=== PATIENT | female | born 1945 | race Caucasian/White ===

== ENCOUNTER 2016-11-17 16:49 | Inpatient (IN) | payer OTHER ==
--- NOTE | 2016-11-17 18:05 | PDOC ---
History of Present Illness - History of Present Illness Initial Comments: 11/17/16 18:07 The patient is a 70 year old female, with a significant past medical history of CVA (November 2015), CAD, hypertension, who presents to the emergency department with 3 weeks of progressive lower extremity weakness with new onset of fecal and urinary incontinence and frequent falls for the past 2 weeks. The patient's family states her feet were swollen a week ago, but has now resolved. The patient states she has been unsteady on her feet and reports falling onto a hard ground recently, resulting in a small bruise on the right side of her back. She states her incontinence has been because she is unaware of when she is moving her bowels or passing urine. She also states she feels she can not walk to the bathroom. She denies chest pain, shortness of breath, headache and dizziness. She denies fever, chills, nausea, vomit, diarrhea and constipation. She denies dysuria, frequency, urgency and hematuria. Allergies: Penicillin Social history: denies toxic habits PCP - Dr. Grazyna Macias <Angi Tomlinson - Last Filed: 11/17/16 18:30> <Merary Obregon - Last Filed: 11/17/16 18:40> - General Chief Complaint: Weakness Stated Complaint: WEAKNESS Time Seen by Provider: 11/17/16 17:58 Past History <Angi Tomlinson - Last Filed: 11/17/16 18:30> - Past Medical History Cardiac Disorders: Yes (2010) CVA: Yes Diabetes: Yes HTN: Yes - Surgical History Cardiac Surgery: Yes (Stents 2010) - Psycho/Social/Smoking Cessation Hx Anxiety: No Suicidal Ideation: No Smoking Status: No Smoking History: Former smoker Have you smoked in the past 12 months: No Number of Cigarettes Smoked Daily: 20 If you are a former smoker, when did you quit?: 2 YRS Information on smoking cessation initiated: No 'Breaking Loose' booklet given: 11/27/15 Hx Alcohol Use: No Drug/Substance Use Hx: No Substance Use Type: None Hx Substance Use Treatment: No <Merary Obregon - Last Filed: 11/17/16 18:40> - Past Medical History Allergies/Adverse Reactions: Allergies Allergy/AdvReac Type Severity Reaction Status Date / Time Penicillins Allergy Unknown Verified 11/17/16 16:56 Home Medications: Ambulatory Orders Ascorbic Acid [Vitamin C -] 500 mg PO DAILY #0 tablet 12/02/15 Atorvastatin Ca [Lipitor] 10 mg PO HS #0 tablet 12/02/15 Carvedilol [Coreg -] 25 mg PO BID #0 tablet 12/02/15 Clopidogrel Bisulfate [Plavix -] 75 mg PO DAILY #0 tablet 12/02/15 Heparin - 5,000 unit SQ BID #0 vial 12/02/15 Insulin Sliding Scale [Novolog Vial Sliding Scale -] 1 vial SQ ACHS #0 units 01/09 Losartan Potassium [Cozaar -] 50 mg PO DAILY #0 tablet 12/02/15 Metformin HCl [Glucophage -] 1,000 mg PO BIDAC #0 tablet 12/02/15 Nicotine Patch [Nicoderm Patch -] 14 mg TD DAILY #0 patch 12/02/15 Review of Systems - Review of Systems Able to Perform ROS?: Yes Comments:: 11/17/16 18:12 GENERAL/CONSTITUTIONAL: No fever or chills. No weakness. HEAD, EYES, EARS, NOSE AND THROAT: No change in vision. No ear pain or discharge. No sore throat. CARDIOVASCULAR: No chest pain or shortness of breath. RESPIRATORY: No cough, wheezing, or hemoptysis. GASTROINTESTINAL: (+) fecal incontinence. No nausea, vomiting, diarrhea or constipation. GENITOURINARY: (+) urine incontinence. No dysuria MUSCULOSKELETAL: (+) back pain. No joint or muscle swelling or pain. No neck SKIN: No rash NEUROLOGIC: (+) unsteady gait, frequent falls, decreased strength/sensation in the LLE. No headache, vertigo, loss of consciousness, ENDOCRINE: No increased thirst. No abnormal weight change. HEMATOLOGIC/LYMPHATIC: No anemia, easy bleeding, or history of blood clots. ALLERGIC/IMMUNOLOGIC: No hives or skin allergy. <Angi Tomlinson - Last Filed: 11/17/16 18:30> *Physical Exam - Vital Signs Last Vital Signs Temp Pulse Resp BP Pulse Ox 98.2 F 66 20 164/82 99 11/17/16 16:51 11/17/16 16:51 11/17/16 16:51 11/17/16 16:51 11/17/16 16:51 - Physical Exam Comments: 11/17/16 18:14 GENERAL: Awake, alert, and fully oriented, in no acute distress HEAD: No signs of trauma EYES: PERRLA, EOMI, sclera anicteric, conjunctiva clear ENT: Auricles normal inspection, hearing grossly normal, nares patent, oropharynx clear without exudates. Moist mucosa NECK: Normal ROM, supple, no lymphadenopathy, JVD, or masses LUNGS: Breath sounds equal, clear to auscultation bilaterally. No wheezes, and no crackles HEART: Regular rate and rhythm, normal S1 and S2, no murmurs, rubs or gallops ABDOMEN: Soft, nontender, normoactive bowel sounds. No guarding, no rebound. No masses EXTREMITIES: Normal range of motion, no edema. No clubbing or cyanosis. No cords, erythema, or tenderness NEUROLOGICAL: (+) no midline spinal tenderness.. Decreased sensation to light touch on the LLE. Normal speech, SKIN: Warm, Dry, normal turgor, no rashes or lesions noted. <Angi Tomlinson - Last Filed: 11/17/16 18:30> - Vital Signs Last Vital Signs Temp Pulse Resp BP Pulse Ox 98.2 F 66 20 164/82 99 11/17/16 16:51 11/17/16 16:51 11/17/16 16:51 11/17/16 16:51 11/17/16 16:51 <Merary Obregon - Last Filed: 11/17/16 18:40> Medical Decision Making - Medical Decision Making 11/17/16 18:00 70 yo F with h/o prior CVA, HTN DM living at home with family, here with 3 weeks of progressive weakness, frequent falls, and recently bowel and bladder incontinence. states has been issues with balance. in addition has had chronic neck and low back pain. no f/c states has not idea when she is about to urinate or defecate. pt has chronically left sided weakness from old cva, worse recently. folows with dr. nunez. on physical exam, NAD lungs cTAB heart RR Rno m/r/g. abd soft. nuero awake alert 5/5 upper ext strenth, lower ext 4/5 llext, right 5/5. sensation decreased left leg. no mildline spinal tenderness. differential: cva, spinal stenosis, ich from falls, infection. plan cbc lytes ua ekg ct head, cervical spine, likely admission for MRI. <Merary Obregon - Last Filed: 11/17/16 18:40> *DC/Admit/Observation/Transfer - Attestations Scribe Attestion: 11/17/16 18:31 Documentation prepared by Angi Tomlinson, acting as medical coding specialist for Merary Obregon MD <Angi Tomlinson - Last Filed: 11/17/16 18:30> - Discharge Dispostion Admit: Yes <Merary Obregon - Last Filed: 11/17/16 18:40> Diagnosis at time of Disposition: Weakness of both lower extremities - Referrals Referrals: Grazyna Macias MD [Primary Care Provider] -
[2016-11-17 18:57] LABS: MEAN CELL VOLUME 79.1 fl (80-96); MEAN PLT VOLUME 7.9 fl (7.5-11.1); PLATELET COUNT 302 K/MM3 (134-434); WHITE BLOOD COUNT 8.2 K/mm3 (4.0-10.0)
[2016-11-17 18:59] LABS: BASOPHIL 0.6 % (0-2.0); EOSINOPHIL 1.3 % (0-4.5); MCH 25.7 pg (25.7-33.7); MCHC 32.5 g/dl (32.0-36.0); NEUTROPHILS 65.8 % (42.8-82.8); RDW 14.8 % (11.6-15.6)
[2016-11-17 22:20] LABS: ALBUMIN 3.6 g/dl (3.4-5.0); ANION GAP 8 (8-16); BILIRUBIN,TOTAL 0.4 mg/dL (0.2-1.0); CALCIUM 9.2 mg/dL (8.5-10.1); CO2 28 mmol/L (21-32); COCKROFT - GAULT 51.3145; CREATININE 0.9 mg/dL (0.55-1.02); GLUCOSE,RANDOM 93 mg/dL (74-106); SGOT/AST 18 U/L (15-37); SGPT/ALT 19 U/L (12-78); TOT PROT 6.7 g/dl (6.4-8.2)
[2016-11-17 22:22] LABS: ALK PHOS 67 U/L (45-117); TROPONIN I 0.03 ng/ml (0.00-0.05)
[2016-11-18 01:17] VITALS: BMI 27.3
[2016-11-18] MEDS ORDERED: ACETAMINOPHEN 325 MG TABLET (FP) PO PRN (01:34)
[2016-11-18] MEDS: metFORMIN HCL 500 MG TABLET (FP) PO SCH ×2 (06:50→17:29)
--- NOTE | 2016-11-18 09:39 | HP ---
DATE OF ADMISSION: 11/17/2016 HISTORY: This is a 70-year-old female known to me for many years. Came to the emergency room, brought by her children saying that she is losing her control of bowel movements while at home. She had a stroke about 8 years ago. Since then, wheelchair-bound. At home, she is on multiple medications for diabetes. Also on Plavix, losartan, carvedilol. PHYSICAL EXAMINATION General: This morning, patient is awake, alert, oriented. She knows where she is. She knows me. Vital signs: B/P 180/70, pulse 63, respirations 20, temperature 98. HEENT: Unremarkable, neck supple, no JVD. Lungs: Clear. Heart: S1, S2, normal. No S3, S4. Abdomen: Soft. Neurological examination: Minimal weakness elicited on the right lower extremity. IMPRESSION: 1. Generalized weakness and fall. 2. Incontinence of bowel movements. 3. Cerebrovascular accident . 4. Diabetes. 5. Hypertension. PLAN: 1. Neuro consult. Dr. Newton. 2. Will evaluate chest x-ray, EKG and labs. 3. Patient may need fdc facility placement. DEWEY CROCKETT M.D. [id number]
[2016-11-18] MEDS: CARVEDILOL 25 MG TABLET (FP) PO SCH (10:33)
[2016-11-18] MEDS: CLOPIDOGREL BISULFATE 75 MG TABLET (FP) PO SCH (10:33)
[2016-11-18] MEDS: LOSARTAN POTASSIUM 50 MG TABLET (FP) PO SCH (10:33)
--- NOTE | 2016-11-18 13:07 | EKG ---
Test Reason : Blood Pressure : / mmHG Vent. Rate : 060 BPM Atrial Rate : 060 BPM P-R Int : 164 ms QRS Dur : 086 ms QT Int : 382 ms P-R-T Axes : 060 -46 093 degrees QTc Int : 382 ms NORMAL SINUS RHYTHM LEFT AXIS DEVIATION LEFT VENTRICULAR HYPERTROPHY WITH REPOLARIZATION ABNORMALITY CANNOT RULE OUT SEPTAL INFARCT (CITED ON OR BEFORE 09-JUL-2010) INFERIOR INFARCT , AGE UNDETERMINED ABNORMAL ECG WHEN COMPARED WITH ECG OF 27-NOV-2015 14:17, PREMATURE VENTRICULAR COMPLEXES ARE NO LONGER PRESENT INFERIOR INFARCT IS NOW PRESENT NONSPECIFIC T WAVE ABNORMALITY, WORSE IN INFERIOR LEADS INVERTED T WAVES HAVE REPLACED NONSPECIFIC T WAVE ABNORMALITY IN ANTERIOR LEADS Confirmed by JACQUELYN FOREMAN MD ([id number]) on 11/18/2016 1:07:00 PM Referred By: Confirmed By:JACQUELYN FOREMAN MD
[2016-11-18] MEDS: ATORVASTATIN CA 10 MG TABLET (FP) PO SCH (22:22)
--- NOTE | 2016-11-18 22:45 | CONSULT ---
Consult - text type - Consultation Consultation Note: NEUROLOGY CONSULTATION is greatly appreciated: This 70 yo RH woman lives with two sons. PMH asig for HTN, DM, Chol, ASHD, S/P CVA with left sided weakness. Chronic neck and low back pain. Denies ETOH. On Insulin, clopidogrel, atorvastatin, carvedilol, losartan, metformin and nicoderm. Now admitted after 3 weeks of progressive cognitive decline culminating in bowel and bladder dysfunction and multiple falls. CT of head (reviewed): Moderate, diffuse atrophy with ex-vacuo hydrocephalus and diffuse microvascular changes. CT of Cervical spine: Moderate DJD without canal stenosis or cord compression. XRays of LS spine: Moderately advanced DJD without fracture or dislocation. JAZZ: Neck supple. No bruits. NEURO: Slow to respond. Cannot give [facility], May or Trump. She know it is 2017. + Glabella. Snout Sparse fluent speech CN II-XII: Normal Motor: No drift or tremor. Normal strength. Symmetrical grasps. Brisk reflexes. Toes downgoing. Coord: No obvious dystaxia Sensory: Briskly withdraws all 4's to pinch. Gait: Not tested. IMP: Moderately severe, B/L cerebral dysfunction (OMS, Chronic) probably representing underlying Alzheimer's Disease. Etiology of subacute deterioration is not immediately apparent but suspect Toxic-metabolic factors are responsible. SUGGEST: Check B12, B1, TSH, T4, RPR, Mg++, Ammonia, CK, UA, C&S. Give thiamine 250 mg IVPB in 100 cc NS q 8 hrs x 3 days. Mobilize OO Bed to chair for meals. Thank you very much, Geovani Newton MD
[2016-11-19] MEDS: metFORMIN HCL 500 MG TABLET (FP) PO SCH ×2 (06:21→16:10)
[2016-11-19 08:13] LABS: THYROXINE (T4) 8.3 ug/dl (4.8-13.9)
[2016-11-19 08:19] LABS: C-REACTIVE PROTEIN < 0.3 MG/DL (0.00-0.3)
[2016-11-19 08:20] LABS: THYROID STIMULATING HORMONE 4.66 uIU/ml (0.358-3.74)
[2016-11-19 08:32] LABS: URINE APPEARANCE CLOUDY; URINE BILIRUBIN NEGATIVE (NEGATIVE); URINE COLOR LTYELLOW; URINE GLUCOSE (UA) NEGATIVE (NEGATIVE); URINE KETONE NEGATIVE (NEGATIVE); URINE LEUK ESTERASE NEGATIVE (NEGATIVE); URINE NITRITE NEGATIVE (NEGATIVE); URINE PROTEIN NEGATIVE (NEGATIVE); URINE UROBILINOGEN NEGATIVE E.U./dl (0.2-1.0)
[2016-11-19 08:46] LABS: URINE BLOOD 2+ (NEGATIVE)
[2016-11-19 08:52] LABS: URIC ACID CRYSTALS RARE /hpf (NONE SEEN); URINE RBC 101 /hpf (0-3); URINE WBC 3 /hpf (3-5)
[2016-11-19 09:12] LABS: TROPONIN I 0.03 ng/ml (0.00-0.05)
--- NOTE | 2016-11-19 09:18 | PN ---
Progress Note, Physician Chief Complaint: Feels better History of Present Illness: Dr Newton,s neuro consult appreciated Started on IV thiamine - Current Medication List Current Medications: Active Medications Acetaminophen (Tylenol -) 650 mg PO Q6H PRN PRN Reason: PAIN Atorvastatin Calcium (Lipitor -) 10 mg PO HS [facility] Last Admin: 11/18/16 22:22 Dose: 10 mg Carvedilol (Coreg -) 25 mg PO DAILY [facility] Last Admin: 11/18/16 10:33 Dose: 25 mg Clopidogrel Bisulfate (Plavix -) 75 mg PO DAILY [facility] Last Admin: 11/18/16 10:33 Dose: 75 mg Losartan Potassium (Cozaar -) 50 mg PO DAILY [facility] Last Admin: 11/18/16 10:33 Dose: 50 mg Metformin HCl (Glucophage -) 1,000 mg PO BIDAC [facility] Last Admin: 11/19/16 06:21 Dose: 1,000 mg Thiamine HCl (Vitamin B1 Injection -) 200 mg IVPB DAILY [facility] - Objective Vital Signs: Vital Signs Temperature 97.1 F L 11/19/16 08:40 Pulse Rate 78 11/19/16 08:40 Respiratory Rate 20 11/19/16 08:40 Blood Pressure 173/86 11/19/16 08:40 O2 Sat by Pulse Oximetry (%) 95 11/18/16 21:00 Constitutional: Yes: No Distress Eyes: Yes: WNL HENT: Yes: WNL Neck: Yes: WNL Cardiovascular: Yes: WNL Respiratory: Yes: WNL Gastrointestinal: Yes: WNL ...Rectal Exam: Yes: Deferred Genitourinary: Yes: WNL Breast(s): Yes: WNL Musculoskeletal: Yes: Muscle Weakness Edema: No Neurological: Yes: Alert - ....Imaging X-ray: Report Reviewed
[2016-11-19] MEDS: THIAMINE HCL 200 MG/2 ML VIAL IVPB SCH (10:04)
[2016-11-19] MEDS: CARVEDILOL 25 MG TABLET (FP) PO SCH (10:04)
[2016-11-19] MEDS: CLOPIDOGREL BISULFATE 75 MG TABLET (FP) PO SCH (10:04)
[2016-11-19] MEDS: LOSARTAN POTASSIUM 50 MG TABLET (FP) PO SCH (10:05)
[2016-11-19] MEDS: ATORVASTATIN CA 10 MG TABLET (FP) PO SCH (21:43)
[2016-11-20] MEDS: metFORMIN HCL 500 MG TABLET (FP) PO SCH ×2 (06:16→16:47)
[2016-11-20] MEDS: THIAMINE HCL 200 MG/2 ML VIAL IVPB SCH (09:23)
[2016-11-20] MEDS: LOSARTAN POTASSIUM 50 MG TABLET (FP) PO SCH (09:23)
[2016-11-20] MEDS: CLOPIDOGREL BISULFATE 75 MG TABLET (FP) PO SCH (09:23)
[2016-11-20] MEDS: CARVEDILOL 25 MG TABLET (FP) PO SCH (09:23)
[2016-11-20] MEDS: ATORVASTATIN CA 10 MG TABLET (FP) PO SCH (23:30)
[2016-11-21] MEDS: metFORMIN HCL 500 MG TABLET (FP) PO SCH ×2 (06:26→17:22)
[2016-11-21] MEDS: LOSARTAN POTASSIUM 50 MG TABLET (FP) PO SCH (09:40)
[2016-11-21] MEDS: CLOPIDOGREL BISULFATE 75 MG TABLET (FP) PO SCH (09:40)
[2016-11-21] MEDS: CARVEDILOL 25 MG TABLET (FP) PO SCH (09:40)
[2016-11-21] MEDS ORDERED: THIAMINE HCL 200 MG/2 ML VIAL IM ONE (10:30)
--- NOTE | 2016-11-21 14:21 | PN ---
Progress Note, Physician Chief Complaint: Feels better History of Present Illness: Awaiting SNF - Current Medication List Current Medications: Active Medications Acetaminophen (Tylenol -) 650 mg PO Q6H PRN PRN Reason: PAIN Atorvastatin Calcium (Lipitor -) 10 mg PO HS [facility] Last Admin: 11/20/16 23:30 Dose: 10 mg Carvedilol (Coreg -) 25 mg PO DAILY [facility] Last Admin: 11/21/16 09:40 Dose: 25 mg Clopidogrel Bisulfate (Plavix -) 75 mg PO DAILY [facility] Last Admin: 11/21/16 09:40 Dose: 75 mg Losartan Potassium (Cozaar -) 50 mg PO DAILY [facility] Last Admin: 11/21/16 09:40 Dose: 50 mg Metformin HCl (Glucophage -) 1,000 mg PO BIDAC [facility] Last Admin: 11/21/16 06:26 Dose: 1,000 mg Thiamine HCl (Vitamin B1 Injection -) 200 mg IVPB DAILY [facility] Last Admin: 11/20/16 09:23 Dose: 200 mg - Objective Vital Signs: Vital Signs Temperature 98.6 F 11/21/16 10:00 Pulse Rate 68 11/21/16 10:00 Respiratory Rate 18 11/21/16 10:00 Blood Pressure 174/68 11/21/16 10:00 O2 Sat by Pulse Oximetry (%) 96 11/19/16 21:00 Constitutional: Yes: No Distress Eyes: Yes: WNL HENT: Yes: WNL Neck: Yes: WNL Respiratory: Yes: WNL Gastrointestinal: Yes: WNL ...Rectal Exam: Yes: Deferred Genitourinary: Yes: WNL Musculoskeletal: Yes: Muscle Weakness Edema: No Integumentary: Yes: WNL Neurological: Yes: Alert Assessment/Plan Continue same trt
[2016-11-21] MEDS: ATORVASTATIN CA 10 MG TABLET (FP) PO SCH (23:03)
[2016-11-22] MEDS: metFORMIN HCL 500 MG TABLET (FP) PO SCH ×2 (06:13→16:45)
[2016-11-22] MEDS: THIAMINE HCL 200 MG/2 ML VIAL IVPB SCH ×2 (07:48→09:52)
[2016-11-22] MEDS: LOSARTAN POTASSIUM 50 MG TABLET (FP) PO SCH (09:51)
[2016-11-22] MEDS: CARVEDILOL 25 MG TABLET (FP) PO SCH (09:51)
[2016-11-22] MEDS: CLOPIDOGREL BISULFATE 75 MG TABLET (FP) PO SCH (09:51)
--- NOTE | 2016-11-22 12:11 | PN ---
Progress Note, Physician Chief Complaint: No new complaints History of Present Illness: Diabetic ,S/P CVA admitted with crebral dysfunction - Current Medication List Current Medications: Active Medications Acetaminophen (Tylenol -) 650 mg PO Q6H PRN PRN Reason: PAIN Atorvastatin Calcium (Lipitor -) 10 mg PO HS [facility] Last Admin: 11/21/16 23:03 Dose: 10 mg Carvedilol (Coreg -) 25 mg PO DAILY [facility] Last Admin: 11/22/16 09:51 Dose: 25 mg Clopidogrel Bisulfate (Plavix -) 75 mg PO DAILY [facility] Last Admin: 11/22/16 09:51 Dose: 75 mg Losartan Potassium (Cozaar -) 50 mg PO DAILY [facility] Last Admin: 11/22/16 09:51 Dose: 50 mg Metformin HCl (Glucophage -) 1,000 mg PO BIDAC [facility] Last Admin: 11/22/16 06:13 Dose: 1,000 mg Thiamine HCl (Vitamin B1 Injection -) 200 mg IVPB DAILY [facility] Last Admin: 11/22/16 09:52 Dose: 200 mg - Objective Vital Signs: Vital Signs Temperature 98.9 F 11/22/16 09:29 Pulse Rate 74 11/22/16 09:29 Respiratory Rate 16 11/22/16 09:29 Blood Pressure 157/76 11/22/16 09:29 O2 Sat by Pulse Oximetry (%) 96 11/19/16 21:00 Constitutional: Yes: No Distress Eyes: Yes: WNL HENT: Yes: WNL Neck: Yes: WNL Cardiovascular: Yes: WNL Respiratory: Yes: WNL Gastrointestinal: Yes: Normal Bowel Sounds ...Rectal Exam: Yes: Deferred Genitourinary: Yes: WNL Breast(s): Yes: WNL Musculoskeletal: Yes: Muscle Weakness Peripheral Pulses WNL: Yes Neurological: Yes: Alert Assessment/Plan Continue same trt
[2016-11-22] MEDS: ATORVASTATIN CA 10 MG TABLET (FP) PO SCH (21:18)
[2016-11-23] MEDS: metFORMIN HCL 500 MG TABLET (FP) PO SCH ×2 (06:15→17:30)
--- NOTE | 2016-11-23 09:13 | PN ---
Progress Note, Physician Chief Complaint: No complaints History of Present Illness: Awaiting SNF placement - Current Medication List Current Medications: Active Medications Acetaminophen (Tylenol -) 650 mg PO Q6H PRN PRN Reason: PAIN Atorvastatin Calcium (Lipitor -) 10 mg PO HS [facility] Last Admin: 11/22/16 21:18 Dose: 10 mg Carvedilol (Coreg -) 25 mg PO DAILY [facility] Last Admin: 11/22/16 09:51 Dose: 25 mg Clopidogrel Bisulfate (Plavix -) 75 mg PO DAILY [facility] Last Admin: 11/22/16 09:51 Dose: 75 mg Losartan Potassium (Cozaar -) 50 mg PO DAILY [facility] Last Admin: 11/22/16 09:51 Dose: 50 mg Metformin HCl (Glucophage -) 1,000 mg PO BIDAC [facility] Last Admin: 11/23/16 06:15 Dose: 1,000 mg Thiamine HCl (Vitamin B1 Injection -) 200 mg IVPB DAILY [facility] Last Admin: 11/22/16 09:52 Dose: 200 mg - Objective Vital Signs: Vital Signs Temperature 97.6 F 11/23/16 08:56 Pulse Rate 73 11/23/16 08:56 Respiratory Rate 20 11/23/16 08:56 Blood Pressure 150/79 11/23/16 08:56 O2 Sat by Pulse Oximetry (%) 98 11/22/16 21:00 Constitutional: Yes: No Distress Eyes: Yes: WNL HENT: Yes: WNL Neck: Yes: WNL Respiratory: Yes: WNL Gastrointestinal: Yes: WNL ...Rectal Exam: Yes: WNL Genitourinary: Yes: WNL Musculoskeletal: Yes: Muscle Weakness Edema: No Peripheral Pulses WNL: Yes Neurological: Yes: Other (Old CVA) Assessment/Plan Transfer to [facility]
--- NOTE | 2016-11-23 09:14 | PN ---
Progress Note, Physician - Current Medication List Current Medications: Active Medications Acetaminophen (Tylenol -) 650 mg PO Q6H PRN PRN Reason: PAIN Atorvastatin Calcium (Lipitor -) 10 mg PO HS [facility] Last Admin: 11/22/16 21:18 Dose: 10 mg Carvedilol (Coreg -) 25 mg PO DAILY [facility] Last Admin: 11/22/16 09:51 Dose: 25 mg Clopidogrel Bisulfate (Plavix -) 75 mg PO DAILY [facility] Last Admin: 11/22/16 09:51 Dose: 75 mg Losartan Potassium (Cozaar -) 50 mg PO DAILY [facility] Last Admin: 11/22/16 09:51 Dose: 50 mg Metformin HCl (Glucophage -) 1,000 mg PO BIDAC [facility] Last Admin: 11/23/16 06:15 Dose: 1,000 mg Thiamine HCl (Vitamin B1 Injection -) 200 mg IVPB DAILY [facility] Last Admin: 11/22/16 09:52 Dose: 200 mg - Objective Vital Signs: Vital Signs Temperature 97.6 F 11/23/16 08:56 Pulse Rate 73 11/23/16 08:56 Respiratory Rate 20 11/23/16 08:56 Blood Pressure 150/79 11/23/16 08:56 O2 Sat by Pulse Oximetry (%) 98 11/22/16 21:00
[2016-11-23] MEDS: CARVEDILOL 25 MG TABLET (FP) PO SCH (11:02)
[2016-11-23] MEDS: CLOPIDOGREL BISULFATE 75 MG TABLET (FP) PO SCH (11:02)
[2016-11-23] MEDS: LOSARTAN POTASSIUM 50 MG TABLET (FP) PO SCH (11:03)
[2016-11-23] MEDS: THIAMINE HCL 200 MG/2 ML VIAL IVPB SCH (11:03)
[2016-11-23 14:50] VITALS: BP 166/79; PULSE 70; TEMP 98.6
--- NOTE | 2016-11-23 16:45 | CONSULT ---
Consult - text type - Consultation Consultation Note: Podiatry Consultation: 70 year old F, history of CVA, admitted for B/L LE weakness for several weeks onset. Podiatry consultation requested for trimming of elongated, discolored toe nails x 10. Patient [facility] not [facility] to [facility] care for over 1 year. She denies F/V/N/C/SOB/CP. PMHx: HTN, CAD, NIDDM, h/o CVA, HLP Meds: noted in chart ALL: PCN YASSINE: Pedal pulses palpable, TG wnl, CFT brisk to all toes bilaterally. Nails are elongated, discolored, thickened, tender x 10. No nail bed wounds, no signs of infection. Imp: 70 year old NIDDM F with onychomycosis x 10 1. Manual debridement of mycotic nails x 10 with nail nipper. Patient tolerated the procedure well without complications. 2. DM foot hygiene discussed. 3. Upon discharge, will f/u in about 3-4 months for routine foot care. Thank you for the courtesy of this consultation. Carmelina Pickard DPM
== END 2016-11-23 19:33 | DRG 57 ==
LOC: JER 16:49 → JERBED 18:40 → J7W 11-18 00:14
PROVIDERS: ADMIT Internal Medicine; ATTEND Internal Medicine
PROC: 0HBRXZZ Excision of Toe Nail, External Approach (ICD-10-PCS; principal; 2016-11-23)
PROC: 0HBRXZZ Excision of Toe Nail, External Approach (ICD-10-PCS; 2016-11-23)
PROC: 0HBRXZZ Excision of Toe Nail, External Approach (ICD-10-PCS; 2016-11-23)
PROC: 0HBRXZZ Excision of Toe Nail, External Approach (ICD-10-PCS; 2016-11-23)
PROC: 0HBRXZZ Excision of Toe Nail, External Approach (ICD-10-PCS; 2016-11-23)
PROC: 0HBRXZZ Excision of Toe Nail, External Approach (ICD-10-PCS; 2016-11-23)
PROC: 0HBRXZZ Excision of Toe Nail, External Approach (ICD-10-PCS; 2016-11-23)
PROC: 0HBRXZZ Excision of Toe Nail, External Approach (ICD-10-PCS; 2016-11-23)
PROC: 0HBRXZZ Excision of Toe Nail, External Approach (ICD-10-PCS; 2016-11-23)
PROC: 0HBRXZZ Excision of Toe Nail, External Approach (ICD-10-PCS; 2016-11-23)
DX: G30.9 Alzheimer's disease, unspecified (principal); I69.354 Hemiplegia and hemiparesis following cerebral infarction affecting left non-dominant side; F02.80 Dementia in other diseases classified elsewhere, unspecified severity, without behavioral disturbance, psychotic disturbance, mood disturbance, and anxiety; R29.6 Repeated falls; R15.9 Full incontinence of feces; N39.42 Incontinence without sensory awareness; M47.9 Spondylosis, unspecified; E11.9 Type 2 diabetes mellitus without complications; I10 Essential (primary) hypertension; E78.00 Pure hypercholesterolemia, unspecified; I25.10 Atherosclerotic heart disease of native coronary artery without angina pectoris; Z95.5 Presence of coronary angioplasty implant and graft; R26.81 Unsteadiness on feet; M54.9 Dorsalgia, unspecified; B35.1 Tinea unguium
CPT/HCPCS: 36415; 70450-TC; 71010-TC; 72100-TC; 72125-TC; 80053; 81003; 81015; 82140; 82550; 82607; 83880; 84425; 84436; 84443; 84484; 85025; 85651; 86140; 86593; 87086; 93005; 93010; 97116-GP; 97162-GP; 99285-25

== ENCOUNTER 2017-05-11 15:51 | Emergency (ER) | payer OTHER ==
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
[2017-05-11 16:26] VITALS: BP 137/79; PULSE 90; TEMP 97.8; BMI 28.3
== END 2017-05-11 18:29 | disposition home or self-care (01) ==
LOC: JER 15:51
DX: S30.0XXA Contusion of lower back and pelvis, initial encounter (principal); Y04.2XXA Assault by strike against or bumped into by another person, initial encounter; Y93.89 Activity, other specified; Y92.128 Other place in nursing home as the place of occurrence of the external cause; I25.10 Atherosclerotic heart disease of native coronary artery without angina pectoris; E11.9 Type 2 diabetes mellitus without complications; I10 Essential (primary) hypertension; E78.5 Hyperlipidemia, unspecified; Z87.891 Personal history of nicotine dependence; Z95.5 Presence of coronary angioplasty implant and graft
CPT/HCPCS: 99281-25

== ENCOUNTER 2018-01-04 17:09 | Inpatient (IN) | payer OTHER ==
--- NOTE | 2018-01-04 17:31 | PDOC ---
History of Present Illness - General Stated Complaint: CHEST PAIN Time Seen by Provider: 01/04/18 17:31 History Source: Patient Exam Limitations: Dementia (Pt states she has "memory loss". She is not accompanied by any family and was brought by EMS. She is wearing a medical bracelet.) - History of Present Illness Initial Comments: Pt, with PMH of HTN, DM, prior PR, and dementia, presents with chest pain since yesterday. Pt states that she has "memory loss" and does not remember most events that occurred yesterday. She was brought to the ED by EMS from the [facility]. She states her chest pain is "all over her chest," radiates to her neck and back, and is pressure-like and squeezing in quality. She does not know of any exacerbating or alleviating factors, and does not know the last time she ate. She states she took all of her medication this morning, and had a regular bowel movement yesterday. She also states she normally has swelling in her legs, and sleeps on 2 pillows. She denies fevers/chills, syncope, light- headedness, diaphoresis, nausea or vomiting, abdominal pain, dysuria or changes in frequency to urination. 01/04/18 18:51 Past History - Past Medical History Allergies/Adverse Reactions: Allergies Allergy/AdvReac Type Severity Reaction Status Date / Time Penicillins Allergy Unknown Verified 01/04/18 17:47 Home Medications: Ambulatory Orders Acetaminophen W/ Codeine #3 [Tylenol # 3 -] 1 tab PO QID 01/04/18 Acetaminophen [Tylenol] 650 mg PO QID 01/04/18 Ascorbic Acid [Vitamin C] 500 mg PO DAILY 01/04/18 Baclofen 10 mg PO TID 01/04/18 Carvedilol [Coreg -] 25 mg PO BID 01/04/18 Clopidogrel Bisulfate [Clopidogrel] 75 mg PO DAILY 01/04/18 Glipizide 5 mg PO DAILY 01/04/18 Losartan Potassium 25 mg PO DAILY 01/04/18 Metformin HCl [Metformin HCl ER] 1,000 mg PO DAILY 01/04/18 Metformin HCl [Metformin HCl ER] 500 mg PO DAILY 01/04/18 Nitroglycerin [Nitrostat] 0.4 mg SL ASDIR 01/04/18 Rosuvastatin Calcium [Crestor] 20 mg PO DAILY 01/04/18 Thiamine Mononitrate [Vitamin B-1] 100 mg PO DAILY 01/04/18 hydrALAZINE HCL [Apresoline -] 10 mg PO TID 01/04/18 Anemia: No Asthma: No Cancer: No Cardiac Disorders: Yes (2010) CVA: Yes COPD: No CHF: No Dementia: No Diabetes: Yes GI Disorders: No Disorders: No HTN: Yes Hypercholesterolemia: Yes Liver Disease: No Seizures: No Thyroid Disease: No - Surgical History Abdominal Surgery: No Appendectomy: No Cardiac Surgery: Yes (Stents 2010) Cholecystectomy: No Lung Surgery: No Neurologic Surgery: No Orthopedic Surgery: No - Suicide/Smoking/Psychosocial Hx Smoking Status: No Smoking History: Never smoked Have you smoked in the past 12 months: No Number of Cigarettes Smoked Daily: 20 If you are a former smoker, when did you quit?: 2 YRS 'Breaking Loose' booklet given: 11/27/15 Hx Alcohol Use: No Drug/Substance Use Hx: No Substance Use Type: None Hx Substance Use Treatment: No Review of Systems - Review of Systems Able to Perform ROS?: Yes (Pt has dementia) Is the patient limited Armenian proficient: Yes Constitutional: Yes: Weight Stable. No: Chills, Diaphoresis, Fever, Night Sweats HEENTM: No: Blurred Vision, Recent change in vision, Double Vision, Difficulty Swallowing Respiratory: No: Cough, Orthopnea, Shortness of Breath, SOB with Exertion, Productive cough Cardiac (ROS): Yes: Chest Pain, Edema (LE edema.), Chest Tightness. No: Irregular Heart Rate, Lightheadedness, Palpitations, Syncope ABD/GI: No: Abdominal Distended, Abd. Pain w/ defecation, Blood Streaked Bowels , Constipated, Diarrhea, Nausea, Poor Appetite, Vomiting, Indigestion : Yes: Incontinence (Pt wears diaper). No: Burning, Dysuria, Frequency, Flank Pain, Hematuria, Pain, Urgency Musculoskeletal: No: Joint Pain, Muscle Pain Integumentary: No: Bruising, Rash, Sweating Neurological: No: Headache, Weakness Psychiatric: No: Change in Appetite Endocrine: No: Excessive Sweating, Increased Urine Hematologic/Lymphatic: No: Blood Clots All Other Systems: Reviewed and Negative *Physical Exam - Physical Exam General Appearance: Yes: Nourished, Appropriately Dressed, Mild Distress (Pt complaining of chest pain, but has normal work of breathing. Vitals stable.) HEENT: positive: EOMI, Normal ENT Inspection, Normal Voice, Symmetrical, Pharynx Normal Neck: positive: Trachea midline, Normal Thyroid, Supple. negative: Tender, Rigid Respiratory/Chest: positive: Lungs Clear, Normal Breath Sounds. negative: Chest Tender (No chest tenderness to palpation.), Respiratory Distress, Accessory Muscle Use, Crackles, Rales Cardiovascular: positive: Regular Rhythm, S1, S2, Edema (LE pitting edema to mid -tibia), Bradycardia (Rate in 50s). negative: JVD, Murmur Vascular Pulses: Dorsalis-Pedis (R): 3+, Doralis-Pedis (L): 3+ Gastrointestinal/Abdominal: positive: Normal Bowel Sounds, Tender (mild RUQ tenderness), Flat, Soft. negative: Organomegaly, Pulsatile Mass, Distended, Guarding, Rebound Musculoskeletal: positive: Normal Inspection. negative: CVA Tenderness Extremity: positive: Normal Capillary Refill, Normal Inspection, Normal Range of Motion, Pelvis Stable. negative: Tender Integumentary: positive: Normal Color, Dry, Warm Neurologic: positive: admissions recruiter II-XII NML intact, Fully Oriented, Alert, Normal Mood/ Affect, Normal Response, Motor Strength 5/5 Heart Score/ECG Review - ECG Intrepretation Rhythm: Regular Rhythm - [place]: Left [place] Deviation - P and [place] Delta Wave(s) Present: No WPW: No - QRS Poor R Wave Progression: No Q Wave Present: Yes Comment:: 01/04/18 19:21 Prior q waves in anterior leads, unchanged from prior ECG - ST and T Early Repolarization: No Non Specific ST-T Wave changes: No Flattened T Waves: No Prolonged Q-T Interval: No - ECG Impressions Normal ECG: Yes Non-specific ST Elevation: No Ischemic Changes: No (q waves present, but unchanged) Bradycardia: Yes (Unchanged from prior) Torsades cassi Pointes: No WPW: No Medical Decision Making - Medical Decision Making Pt seen within 15 minutes of bed arrival (entered later). Pt first complaining of generalized chest pain. Given history of ACS, EKG, troponin, CBC, CMP ordered. Lipase was ordered due to mild RUQ abdominal pain. EKG showed no new changes. R/o reflux vs pancreatitis vs cholecystitis. History is very limited given pts memory loss. Pt pain improved (now mild) after administration of aspirin and maalox. Pepcid IV also administered. Will reassess for pain to determine resolution. 01/04/18 18:48 Pt states pain is much improved. Will wait for labs and sign out to mid-shift resident for disposition. 01/04/18 19:11 Provided 4 mg IV zofran for nausea. No QT prolongation noted on ECG. 01/04/18 19:23 Pt stays at [facility] [phone]. 01/04/18 19:25 *DC/Admit/Observation/Transfer Diagnosis at time of Disposition: Chest pain Qualifiers: Chest pain type: unspecified Qualified Code(s): R07.9 - Chest pain, unspecified - Referrals Referrals: Grazyna Macias MD [Primary Care Provider] - - Patient Instructions - Post Discharge Activity
--- NOTE | 2018-01-04 17:39 | PDOC ---
Attending Attestation - HPI HPI: 01/04/18 20:27 The patient is a 72 year old female from retirement with a significant PMH of CA, CVA, DM, hypertension, and hyperlipidemia who presents to the emergency department with chest pain for 1 day. The patient reports that she is experiencing chest pain all over her chest. She also reports some stomach, neck and back pain. The patient reports that she usually sleeps at night with 2 pillows. She denies any recent trauma or injury. The patient denies any episode of coughing or vomiting. She denies any urinary symptoms. The patient denies any other symptoms. She denies any fever, chills, nausea,diarrhea and constipation. She denies any shortness of breath, headache and dizziness. The patient denies any other complaints. PCP: Dr. Villafuerte - Physicial Exam PE: 01/04/18 20:27 GENERAL: Awake, alert, and fully oriented, in no acute distress HEAD: No signs of trauma EYES: PERRLA, EOMI, sclera anicteric, conjunctiva clear ENT: Auricles normal inspection, hearing grossly normal, nares patent, oropharynx clear without exudates. Moist mucosa NECK: Normal ROM, supple, no lymphadenopathy, JVD, or masses LUNGS: Breath sounds equal, clear to auscultation bilaterally. No wheezes, and no crackles HEART: (+)bradycardic. Regular rhythm, normal S1 and S2, no murmurs, rubs or gallops ABDOMEN: (+)RLQ pain. Soft, nontender, normoactive bowel sounds. No guarding, no rebound. No masses EXTREMITIES: Normal range of motion, no edema. No clubbing or cyanosis. No cords, erythema, or tenderness NEUROLOGICAL: Cranial nerves II through XII grossly intact. Normal speech, normal gait SKIN: Warm, Dry, normal turgor, no rashes or lesions noted. Documentation prepared by Lynne Fernandez, acting as medical office technology instructor for Ann Soto MD. <Lynne Fernandez - Last Filed: 01/04/18 20:27> - Resident Resident Name: Alissa Phoenix - ED Attending Attestation I have performed the following: I have examined & evaluated the patient, The case was reviewed & discussed with the resident, I agree w/resident's findings & plan, Exceptions are as noted - Medical Decision Making 01/04/18 17:39 I, Dr. Ann Soto, DO, attest that this document has been prepared under my direction and personally reviewed by me in its entirety. I further attest, that it accurately reflects all work, treatment, procedures and medical decision -making performed by me. 01/04/18 18:11 72yo female with cp and epigastric abd pain -states pain is all over -pt is pleasantly demented -LE edema -will send labs, ekg, cxr -will medicate with asa and GI cocktail -will monitor and reassess 01/04/18 21:19 trop negative will keep in obs for further eval of cp 01/04/18 21:[address] Austin who accepts pt under Dr. Macias <Ann Soto - Last Filed: 01/04/18 21:25> Heart Score/ECG Review - ECG Intrepretation Comment:: 01/04/18 18:13 sinus annette at 56, q waves inferior leads and anterior leads, no acute st/t wave findings, unchanged from prior ekg 11/10 <Ann Soto - Last Filed: 01/04/18 21:25>
[2018-01-04] MEDS ORDERED: ASPIRIN 81 MG CHEWABLE TABLETS PO ONE (17:43)
[2018-01-04 18:00] VITALS: BMI 33.0
[2018-01-04] MEDS ORDERED: LIDOCAINE VISCOUS 2% ORAL/TOP 20 ML UNIT-DOSE CUP MM ONE (18:13)
[2018-01-04] MEDS ORDERED: FAMOTIDINE 20 MG/50 ML IVPB 20 MG/50 ML MG IVPB ONE ×2 (18:13→18:30)
[2018-01-04] MEDS ORDERED: MAG HYDROX/AL HYDROX/SIMETH 30 ML UNIT-DOSE CUP PO ONE (18:13)
[2018-01-04] MEDS ORDERED: ASPIRIN 81 MG CHEWABLE TABLETS ONE (18:30)
[2018-01-04] MEDS ORDERED: LIDOCAINE VISCOUS 2% ORAL/TOP 20 ML UNIT-DOSE CUP ONE (18:30)
[2018-01-04] MEDS ORDERED: MAG HYDROX/AL HYDROX/SIMETH 30 ML UNIT-DOSE CUP ONE (18:30)
[2018-01-04] MEDS ORDERED: ONDANSETRON 4 MG/2 ML VIAL IVPUSH ONE (19:16)
--- NOTE | 2018-01-04 19:45 | PDOC ---
*Physical Exam - Vital Signs Last Vital Signs Temp Pulse Resp BP Pulse Ox 99.9 F H 51 L 18 154/74 95 01/04/18 17:47 01/04/18 17:47 01/04/18 17:47 01/04/18 17:47 01/04/18 17:47 - Physical Exam Comments: General: No acute distress HEENT: EOMI, MMM Cards: RRR Pulm: Comfortable on room air Abd; Soft, nontender Neuro: Alert, responsive to questions, CN and motor/sensory grossly intact Psych: Agitated, upset ED Treatment Course - LABORATORY CBC & Chemistry Diagram: 01/04/18 20:12 01/04/18 17:43 - Medications Given in the ED: ED Medications Discontinued Medications Generic Name Dose Route Start Last Admin Trade Name Edy PRN Reason Stop Dose Admin Al Hydroxide/Mg Hydroxide 30 ml 01/04/18 18:13 01/04/18 18:39 Mylanta Oral Suspension - PO 01/04/18 18:14 30 ml ONCE ONE Administration Aspirin 324 mg 01/04/18 17:43 01/04/18 18:39 Asa - PO 01/04/18 17:44 324 mg ONCE ONE Administration Famotidine/Sodium Chloride 20 mg in 50 mls @ 100 mls/hr 01/04/18 18:13 18:39 Pepcid 20 Mg Premixed Ivpb - IVPB 01/04/18 18:42 100 mls/hr ONCE ONE Administration Lidocaine HCl 20 ml 01/04/18 18:13 01/04/18 18:39 Xylocaine 2% Viscous Oral - MM 01/04/18 18:14 20 ml ONCE ONE Administration Medical Decision Making - Medical Decision Making 01/04/18 19:[address] Phoenix. Patient is a 72yo woman with a h/o previous MD, dementia, diabetes who presented from a SNF complaining of generalized chest pain since yesterday. Initial workup included an EKG unchanged from previous. CBC, CMP, troponin and lipase were sent but are still pending. Ms Woodson's chest pain improved with maalox and famotidine. She additionally had an episode of small emesis that has resolved with zofran. Ms Woodson is slightly agitated currently about her length of stay and wishes to leave. The need to obtain lab results was discussed, and she states that she understands and is willing to wait. CBC, lytes unremarkable. Troponin at baseline 0.03. Ms Woodson continues to intermittently complain of epigastric pain. Plan to repeat troponin at 22:00. Will admit to telemetry observation for additional ACS workup. Seen and discussed with Dr Soto. *DC/Admit/Observation/Transfer Diagnosis at time of Disposition: Chest pain Qualifiers: Chest pain type: unspecified Qualified Code(s): R07.9 - Chest pain, unspecified - Discharge Dispostion Decision to Admit order: Yes - Referrals Referrals: Grazyna Macias MD [Primary Care Provider] - - Patient Instructions - Post Discharge Activity
[2018-01-04] MEDS ORDERED: ONDANSETRON 4 MG/2 ML VIAL ONE (20:31)
[2018-01-04 20:37] LABS: BASO % 0.4 % (0-2.0); EOS % 1.1 % (0-4.5); HEMATOCRIT 32.3 % (32.4-45.2); HEMOGLOBIN 10.4 GM/dL (10.7-15.3); LYMPH % 11.5 % (8-40); MCH 25.7 pg (25.7-33.7); MCHC 32.2 g/dl (32.0-36.0); MEAN CELL VOLUME 79.9 fl (80-96); MEAN PLT VOLUME 8.1 fl (7.5-11.1); MONO % 3.7 % (3.8-10.2); NEUT % 83.3 % (42.8-82.8); PLATELET COUNT 307 K/MM3 (134-434); RBC 4.05 M/mm3 (3.60-5.2); RDW 15.5 % (11.6-15.6); WHITE BLOOD COUNT 8.6 K/mm3 (4.0-10.0)
[2018-01-04 21:05] LABS: ALK PHOS 54 U/L (45-117); ANION GAP 10 (8-16); BILIRUBIN,TOTAL 0.4 mg/dL (0.2-1.0); BLOOD UREA NITROGEN 20 mg/dL (7-18); CALCIUM 9.1 mg/dL (8.5-10.1); CHLORIDE 103 mmol/L (98-107); CO2 27 mmol/L (21-32); CREATININE 0.9 mg/dL (0.55-1.02); GLUCOSE,RANDOM 186 mg/dL (74-106); POTASSIUM 4.8 mmol/L (3.5-5.1); SGOT/AST 21 U/L (15-37); SGPT/ALT 25 U/L (12-78); SODIUM 140 mmol/L (136-145); TOT PROT 7.2 g/dl (6.4-8.2)
[2018-01-04] MEDS ORDERED: ACETAMINOPHEN 1000 MG/100 ML VIAL (NON FORMULARY) IVPB ONE (21:19)
[2018-01-04] MEDS ORDERED: ACETAMINOPHEN INJECTION 100 ML IVPB ONE (21:42)
--- NOTE | 2018-01-05 10:10 | HP ---
DATE OF ADMISSION: 01/04/2018 HISTORY OF PRESENT ILLNESS: This is a 72-year-old female known to me for many years. At present, she is a resident at [facility]. She came here, was brought to the ER yesterday by the ambulance from the skilled nursing because of chest pain. She was complaining of chest pain yesterday. Nitroglycerin x3 given, no relief. So, they phoned the ambulance. This morning, patient is saying no chest pain. Her troponin did twice negative, but her B peptide is high, 16,918. Her lipase also high, 395. PHYSICAL EXAMINATION: General: Today, awake, alert, oriented. Now, pain no distress. Vital signs: Her blood pressure is 120/80, pulse 70, respirations 20, temperature 98. HEENT: Unremarkable. Neck: supple. No JVD. Lungs: Clear. Heart: S1, S2 normal. No S3, S4. Abdomen: Soft, nontender. Extremities: No edema. Neurologic: Positive findings. DIAGNOSTIC DATA: Chest x-ray negative. Cardiomegaly present. LABORATORY REPORTS: WBC 8.6, hemoglobin 10.4, neutrophils 83. Chemistry: Electrolytes are normal, BUN 20, creatinine 0.9, blood sugar 186, and B peptide 16,918, lipase 395. IMPRESSION: Chest pain, rule out myocardial infarction, diabetes, hypertension, possible pancreatitis. PLAN: As ordered. Mónica [id number]
--- NOTE | 2018-01-05 12:04 | EKG ---
Test Reason : Blood Pressure : / mmHG Vent. Rate : 056 BPM Atrial Rate : 056 BPM P-R Int : 144 ms QRS Dur : 104 ms QT Int : 416 ms P-R-T Axes : 049 -14 078 degrees QTc Int : 401 ms POOR DATA QUALITY, INTERPRETATION MAY BE ADVERSELY AFFECTED SINUS BRADYCARDIA INFERIOR INFARCT (CITED ON OR BEFORE 09-JUL-2010) T WAVE ABNORMALITY, CONSIDER LATERAL ISCHEMIA ABNORMAL ECG WHEN COMPARED WITH ECG OF 17-NOV-2016 18:56, QRS DURATION HAS INCREASED MINIMAL CRITERIA FOR SEPTAL INFARCT ARE NO LONGER PRESENT NONSPECIFIC T WAVE ABNORMALITY NO LONGER EVIDENT IN INFERIOR LEADS T WAVE INVERSION LESS EVIDENT IN LATERAL LEADS Confirmed by JACQUELYN FOREMAN MD ([id number]) on 01/05/2018 12:04:13 PM Referred By: Confirmed By:JACQUELYN FOREMAN MD
[2018-01-05] MEDS ORDERED: NITROGLYCERIN SUBLINGUAL 1/150 0.4 MG TAB SL PRN (18:53)
[2018-01-05] MEDS ORDERED: FUROSEMIDE 40 MG/4 ML INJECTABLE VIAL IVPUSH ONE (19:00)
[2018-01-05] MEDS: DEXTROSE 5%-0.45% SALINE 1,000 ML IV SCH (20:31)
[2018-01-05 20:48] LABS: AMYLASE 961 U/L (25-115); LIPASE 2178 U/L (73-393)
--- NOTE | 2018-01-05 21:31 | CONS ---
DATE OF CONSULTATION: 01/05/2018 REQUESTING PROVIDER: Dr. Macias CHIEF COMPLAINT: Chest pain. HISTORY OF PRESENT ILLNESS: The patient is a 72-year-old female who resides at the [facility] and has a history of hypertension, hypertensive cardiovascular disease, diabetes mellitus, history of cerebrovascular accident with dementia, history of repeated falls, coronary artery disease, status post myocardial infarction, was admitted with anterior pressure-like chest pain that would last 10-15 minutes and would radiate to the back. She had repeated episodes of pain and was brought to the emergency room. She denies having dyspnea, diaphoresis. No history of lightheadedness or dizziness. No history of presyncope or syncope reported. She does give history of progressive pedal edema. There is no history of paroxysmal nocturnal dyspnea or orthopnea. No history of exertional dyspnea. PAST HISTORY: As mentioned in the history of present illness. History of memory loss following cerebrovascular accident. SURGICAL HISTORY: Tonsillectomy. SOCIAL HISTORY: She is a , has 2 sons who are healthy. She started smoking at the age of 14 and stopped 4 years ago. She used to smoke one pack of cigarettes per day. Drank several cups of coffee per day. There is no history of alcohol use. FAMILY HISTORY: Father at the age of 53 of a myocardial infarction. Mother at age 103 of natural causes. She had 3 sisters. One of them at age 64 of unknown cause. The other sisters are basically healthy. ALLERGIES: PENICILLIN. MEDICATIONS: List from [facility] reveals that the patient was on the following medications: 1. Metformin 1500 mg p.o. daily. 2. Coreg 25 mg p.o. q.12 h. 3. Alprazolam 10 mg p.o. t.i.d. 4. Losartan 25 mg 3 tablets p.o. daily. 5. Baclofen 10 mg half-tablet p.o. t.i.d. 6. Plavix 75 mg p.o. daily. 7. Acetaminophen 325 mg q.6 h p.r.n. 8. Crestor 20 mg p.o. daily. 9. Nitrostat 0.4 mg sublingually p.r.n. for chest discomfort. 10. Vitamin B 100 mg p.o. daily. 11. Vitamin C 500 mg p.o. daily. 12. Artificial Tears 1 drop in each eye q.i.d. 13. Bengay 1 application b.i.d. to the [facility]. While in the hospital, the patient had received: 1. Zofran 4 mg IV. 2. Acetaminophen 1000 mg IV piggy back. 3. Mylanta 30 mL. 4. Famotidine 20 mg IV. REVIEW OF SYSTEMS: Constitutional: No history of chills, fever, or night sweats reported. No history of unintentional weight loss. HEENT: No history of headaches, diplopia, blurred vision reported. No history of epistaxis, hoarseness, tinnitus, or deafness. Cardiovascular: See history of present illness. Respiratory: Denies having dyspnea, PND, or orthopnea. No history of cough. No history of hemoptysis. Gastrointestinal: She denies having nausea, vomiting, melena, or hematemesis. Denies having abdominal pain or discomfort. No history of change in bowel habits reported. Genitourinary: No history of dysuria, frequency, or hematuria. Endocrine: See history of present illness. Neurologic: History of 2 cerebrovascular accidents with left hemiparesis. Patient states that she has had gait disturbance and used to have multiple falls. No history of seizures. Patient volunteered the information that she has memory loss, which is at times significant. Hematologic: No history of anemia, bleeding, or ecchymosis reported. PHYSICAL EXAMINATION: General: A 72-year-old female who was in no acute distress. No pallor, cyanosis, clubbing, or jaundice. Vital Signs: Weight on admission was 175 pounds. Blood pressure was 108/65 mmHg, 60 beats per minute and regular, respirations 18 per minute, oxygen saturation 93% on 3 L of oxygen. Neck: Supple. No jugular venous distention. Slightly positive hepatojugular reflux. Carotids were 1-2+. Upstrokes grossly appear to be normal. Unable to appreciate bruits or thyromegaly. Heart: PMI within the 5th intercostal space, no heaves or thrills. S1 and S2 were normal. Ejection systolic murmur grade 2/6 was heard at the 2nd right intercostal space and along the left sternal border ending in early to mid-systole. No diastolic murmur or gallops were heard. Lungs: Clear on auscultation. Abdomen: Soft, protuberant and nontender. No hepatosplenomegaly or palpable masses were appreciated. Bowel sounds were present. Extremities: 2-3+ left lower extremity edema extending to the ankles and foot. 2+ right lower extremity edema. There were bilateral varicosities. Dorsalis pedis and posterior tibial pulses could not be palpated. Femoral pulses were 2+. LABORATORY DATA: CBC on January 04, 2018: WBC count 8600, hemoglobin 10.4 g/dL, platelet count 307,000. Differential: Neutrophils are 83.3% (elevated), lymphocytes 11.5%, monocytes 3.7%, eosinophils 1.1%, basophils 0.4%. Chemistries: Sodium 140, potassium 4.8, chloride 103, CO2 27 mmol/L. BUN 20, creatinine 0.9 mg/dL. Creatinine clearance was over 60. Random glucose was 186 mg/dL. Calcium 9.1, magnesium 2.0 mg/dL. AST was 21, ALT 25. Alkaline phosphatase was 54. CK was 45. Troponins were 0.03 on 2 occasions. BNP was elevated at 16,918.39. Total amylase was elevated at 2042. Lipase was elevated at 395. X-ray of the chest dated January 04, 2018: Large heart. No acute chest pathology. ECG on January 04, 2018: Sinus bradycardia, left axis deviation, equivocal evidence for inferior wall myocardial infarction of indeterminate age. Poor R-wave progression of V1 to V3. Borderline criteria for intraventricular conduction delay. Diffuse ST and T-wave abnormalities. IMPRESSION: 1. Coronary artery disease, history of remote myocardial infarction. Clinical presentation is highly suspicious for new onset angina pectoris. 2. Elevated amylase and lipase etiology: A. Secondary to acute pancreatitis. B. Hepatic congestion related to congestive heart failure. 3. Non-insulin dependent diabetes mellitus. 4. Hypertension. Hypertensive cardiovascular disease. 5. History of cerebrovascular accident with left hemiparesis. 6. History of dementia related to number five. 7. Anemia. 8. Hypercholesterolemia. RECOMMENDATIONS: 1. Follow up ECG and enzymes. 2. Resume cardiac medications. 3. GI evaluation. 4. Ultrasound of the abdomen/gallbladder. 5. Follow up amylase and lipase. 6. Resume carvedilol as prescribed. 7. Hypertriglyceridemia causing pancreatitis. 8. Echocardiogram. 9. Daily weights. 10. Further suggestion will depend upon the results of the aforementioned tests. PROGNOSIS: Guarded. Thank you for your referral. VICENTE BOONE M.D. [id number]
[2018-01-05] MEDS: CARVEDILOL 12.5 MG TABLET (FP) PO SCH (22:16)
[2018-01-05] MEDS: ROSUVASTATIN CA 20 MG TABLET (FP) PO SCH (22:16)
[2018-01-05 23:43] LABS: URINE APPEARANCE CLEAR; URINE BILIRUBIN NEGATIVE (<2.0 mg/dL); URINE COLOR STRAW; URINE GLUCOSE (UA) NEGATIVE (NEGATIVE); URINE KETONE NEGATIVE (NEGATIVE); URINE LEUK ESTERASE NEGATIVE (NEGATIVE); URINE NITRITE NEGATIVE (NEGATIVE); URINE PROTEIN NEGATIVE (NEGATIVE); URINE UROBILINOGEN NEGATIVE mg/dL (0.2-1.0)
[2018-01-06 00:19] LABS: EPI CELLS RARE /HPF (FEW); URINE BACTERIA FEW /hpf (NONE SEEN); URINE MUCUS RARE
[2018-01-06 06:26] LABS: HEMATOCRIT 30.1 % (32.4-45.2); HEMOGLOBIN 10.2 GM/dL (10.7-15.3); MCH 26.9 pg (25.7-33.7); MCHC 33.9 g/dl (32.0-36.0); MEAN CELL VOLUME 79.4 fl (80-96); MEAN PLT VOLUME 7.2 fl (7.5-11.1); PLATELET COUNT 243 K/MM3 (134-434); RBC 3.79 M/mm3 (3.60-5.2); RDW 15.6 % (11.6-15.6); WHITE BLOOD COUNT 7.4 K/mm3 (4.0-10.0)
[2018-01-06 07:09] LABS: CHLORIDE 100 mmol/L (98-107); SODIUM 141 mmol/L (136-145)
[2018-01-06 07:18] LABS: ALBUMIN 3.8 g/dl (3.4-5.0); ALK PHOS 56 U/L (45-117); ANION GAP 10 (8-16); BILIRUBIN,TOTAL 0.5 mg/dL (0.2-1.0); BLOOD UREA NITROGEN 22 mg/dL (7-18); CALCIUM 9.1 mg/dL (8.5-10.1); CHOLESTEROL 90 mg/dL (50-200); CO2 31 mmol/L (21-32); GLUCOSE,RANDOM 180 mg/dL (74-106); HDL CHOLESTEROL 39 mg/dL (40-60); SGOT/AST 15 U/L (15-37); SGPT/ALT 22 U/L (12-78); TOT PROT 6.9 g/dl (6.4-8.2); TRIGLYCERIDES 192 mg/dL (35-160)
--- NOTE | 2018-01-06 09:41 | PN ---
Progress Note, Physician Chief Complaint: Wants to go home History of Present Illness: jack Ayala cardiology consult appreciated,case discussed with him advised GI consult - Current Medication List Current Medications: Active Medications Aspirin (Asa -) 81 mg PO DAILY [facility] Carvedilol (Coreg -) 12.5 mg PO BID [facility] Last Admin: 01/05/18 22:16 Dose: 12.5 mg Clopidogrel Bisulfate (Plavix -) 75 mg PO DAILY [facility] Dextrose/Sodium Chloride (D5-1/2ns -) 1,000 mls @ 42 mls/hr IV ASDIR [facility] Last Admin: 01/05/18 20:31 Dose: 42 mls/hr Losartan Potassium (Cozaar -) 25 mg PO DAILY [facility] Nitroglycerin (Nitrostat -) 0.4 mg SL PRN PRN PRN Reason: CHEST PAIN AFTER ECG Rosuvastatin Calcium (Crestor -) 20 mg PO HS [facility] Last Admin: 01/05/18 22:16 Dose: 20 mg - Objective Vital Signs: Vital Signs Temperature 98.6 F 01/06/18 05:54 Pulse Rate 65 01/06/18 05:54 Respiratory Rate 20 01/06/18 05:54 Blood Pressure 150/68 01/06/18 05:54 O2 Sat by Pulse Oximetry (%) 96 01/05/18 21:00 Constitutional: Yes: Anxious Eyes: Yes: WNL HENT: Yes: WNL Neck: Yes: WNL Cardiovascular: Yes: WNL Respiratory: Yes: WNL Gastrointestinal: Yes: Normal Bowel Sounds ...Rectal Exam: Yes: Deferred Genitourinary: Yes: WNL Musculoskeletal: Yes: WNL Neurological: Yes: Alert Labs: CBC, BMP 01/06/18 05:30 01/06/18 05:30 - ....Imaging Ultrasound: Report Reviewed Assessment/Plan GI consult Dr Curtis Feliz NPO
[2018-01-06 09:46] LABS: AMYLASE 479 U/L (25-115)
[2018-01-06 09:47] LABS: LIPASE 1187 U/L (73-393)
[2018-01-06] MEDS: CLOPIDOGREL BISULFATE 75 MG TABLET (FP) PO SCH (10:15)
[2018-01-06] MEDS: ASPIRIN 81 MG CHEWABLE TABLETS PO SCH (10:15)
[2018-01-06] MEDS: CARVEDILOL 12.5 MG TABLET (FP) PO SCH ×2 (10:15→21:44)
[2018-01-06] MEDS: LOSARTAN POTASSIUM 25 MG TABLET PO SCH (10:15)
--- NOTE | 2018-01-06 10:20 | PN ---
Progress Note (short form) - Note Progress Note: 72 old female admitted with h/o chest discomfort and noted to have significant pedal edema, found to have elevated BNP,amylase and lipase. Known case of CAD, remote [place], type II DM, hypertension, hypertension, s/p CVA with dementia. Currently pain free, no SOB, no abdominal pain or discomfort, nausea or vomiting. Awaiting GI evaluation pending.Rising Lipase and decreasing amylase consistent with acute/recent cholecystitis. GB sonogram reveals cholelithiasis. Active Medications Aspirin (Asa -) 81 mg PO DAILY [facility] Last Admin: 01/06/18 10:15 Dose: 81 mg Carvedilol (Coreg -) 12.5 mg PO BID [facility] Last Admin: 01/06/18 10:15 Dose: 12.5 mg Clopidogrel Bisulfate (Plavix -) 75 mg PO DAILY [facility] Last Admin: 01/06/18 10:15 Dose: 75 mg Dextrose/Sodium Chloride (D5-1/2ns -) 1,000 mls @ 42 mls/hr IV ASDIR [facility] Last Admin: 01/05/18 20:31 Dose: 42 mls/hr Losartan Potassium (Cozaar -) 25 mg PO DAILY [facility] Last Admin: 01/06/18 10:15 Dose: 25 mg Nitroglycerin (Nitrostat -) 0.4 mg SL PRN PRN PRN Reason: CHEST PAIN AFTER ECG Rosuvastatin Calcium (Crestor -) 20 mg PO HS [facility] Last Admin: 01/05/18 22:16 Dose: 20 mg 72 year old female in no acute distress, no pallor, cyanosis, clubbing or jaundice. Last Vital Signs Temp Pulse Resp BP Pulse Ox 98.6 F 65 20 150/68 96 01/06/18 05:54 01/06/18 05:54 01/06/18 05:54 01/06/18 05:54 01/05/18 21:00 NECK: Supple, no JVD, carotids1+. HEART: PMI in the 5th ICS, S1 and S2 normal SEMII/VI2nd rt. ICS. No gallops. LUNGS: Fine creps at both bases. Abdomen: Soft, non tender, no organomegaly no palpable masses. EXTREMITIES: 1-2+ pedal edema, no calf tenderness. Troponin, BNP 01/05/18 01/06/18 19:30 05:30 Troponin I 0.03 0.03 01/05/18 01/06/18 01/06/18 21:35 05:30 05:30 WBC RBC Hgb Hct MCV MCH MCHC RDW Plt Count MPV Sodium 141 Potassium 4.0 Chloride 100 Carbon Dioxide 31 Anion Gap 10 BUN 22 H Creatinine 1.0 Creat Clearance w eGFR 54.35 Random Glucose 180 H Hemoglobin A1c % Calcium 9.1 Total Bilirubin 0.5 AST 15 ALT 22 Alkaline Phosphatase 56 Troponin I 0.03 Total Protein 6.9 Albumin 3.8 Triglycerides 192 H Cholesterol 90 Total LDL Cholesterol 36 HDL Cholesterol 39 L Total Amylase 479 H Lipase 1187 H TSH 4.48 H Free T4 1.05 Urine Color Straw Urine Appearance Clear Urine pH 5.0 Ur Specific Deloit 1.006 Urine Protein Negative Urine Glucose (UA) Negative Urine Ketones Negative Urine Blood 3+ H Urine Nitrite Negative Urine Bilirubin Negative Urine Urobilinogen Negative Ur Leukocyte Esterase Negative Urine WBC (Auto) 8 Urine RBC (Auto) 109 Ur Epithelial Cells Rare Urine Bacteria Few Urine Mucus Rare 01/06/18 01/06/18 01/06/18 05:30 05:30 05:30 WBC 7.4 RBC 3.79 Hgb 10.2 L Hct 30.1 L MCV 79.4 L MCH 26.9 MCHC 33.9 RDW 15.6 Plt Count 243 D MPV 7.2 L D Sodium Potassium Chloride Carbon Dioxide Anion Gap BUN Creatinine Creat Clearance w eGFR Random Glucose Hemoglobin A1c % 7.3 H Calcium Total Bilirubin AST ALT Alkaline Phosphatase Troponin I Total Protein Albumin Triglycerides Cholesterol Total LDL Cholesterol HDL Cholesterol Total Amylase Lipase TSH Cancelled Free T4 Cancelled Urine Color Urine Appearance Urine pH Ur Specific Deloit Urine Protein Urine Glucose (UA) Urine Ketones Urine Blood Urine Nitrite Urine Bilirubin Urine Urobilinogen Ur Leukocyte Esterase Urine WBC (Auto) Urine RBC (Auto) Ur Epithelial Cells Urine Bacteria Urine Mucus IMPRESSION: 1. Acute/recent pancreatitis. 2. Cholelithiasis. 3. CHF. 4. CAD, s/p [place], angina pectoris. 5. Hypertension. 6. DM type II. 7. S/p CVA. 8. H/o dementia. 9. Anemia. RECOMMENDATIONS: 1. Increase dose of careg back to 25mg. Q12h. 2. Lasix 40mg. today iv. 3 Close f/u of BMP. 4. GI evaluation.
--- NOTE | 2018-01-06 11:52 | ECHO ---
Name: LENIN, VILMA Exam:Adult Echocardiogram Study Date: 01/06/2018 08:38 AM Height: 61 in Weight: 175 lb BSA: 1.8 m2 MMode/2D Measurements & Calculations IVSd: 1.2 cm Ao root diam: 2.6 cm LVIDd: 4.6 cm LVIDs: 3.2 cm LVPWd: 1.1 cm LVPWs: 1.1 cm EDV(Teich): 99.7 ml ESV(Teich): 41.4 ml LVOT diam: 2.8 cm Doppler Measurements & Calculations MV E max fernando: 59.7 cm/sec TR max fernando: 202.5 cm/sec MV A max fernando: 93.3 cm/sec TR max P.4 mmHg MV E/A: 0.64 MV dec time: 0.28 sec Med Peak E' Fernando: 4.3 cm/sec Med E/e': 13.9 Lat Peak E' Fernando: 4.9 cm/sec Lat E/e': 12.3 Procedure The study was technically difficult with many images being suboptimal in quality. Left Ventricle Left ventricular systolic function is low normal. The transmitral spectral Doppler flow pattern is nunez ggestive of impaired LV relaxation. Septal motion is consistent with conduction abnormality. Right Ventricle The right ventricle is grossly normal size. The right ventricular systolic function is grossly normal . Atria Normal left and right atrial size and function. Mitral Valve The mitral valve is grossly normal. There is no mitral valve stenosis. There is no mitral regurgitati on noted. Tricuspid Valve The tricuspid valve is not well visualized, but is grossly normal. There is mild tricuspid regurgitat ion. Aortic Valve The aortic valve opens well. No hemodynamically significant valvular aortic stenosis. No aortic regur gitation is present. Pulmonic Valve The pulmonic valve is not well seen, but is grossly normal. There is no pulmonic valvular stenosis. M ild pulmonic valvular regurgitation. Great Vessels The aortic root is normal size. Pericardium/Pleura There is no pericardial effusion. Interpretation Summary The study was technically difficult with many images being suboptimal in quality. Septal motion is consistent with conduction abnormality. The transmitral spectral Doppler flow pattern is suggestive of impaired LV relaxation. Left ventricular systolic function is low normal. There is mild tricuspid regurgitation. Mild pulmonic valvular regurgitation. There is no pericardial effusion. MD Sumanth Sanchez 01/06/2018 11:51 AM
[2018-01-06] MEDS ORDERED: FUROSEMIDE 40 MG/4 ML INJECTABLE VIAL IVPUSH ONE (12:30)
[2018-01-06] MEDS ORDERED: CARVEDILOL 12.5 MG TABLET (FP) PO ONE (12:30)
--- NOTE | 2018-01-06 21:08 | CON.GI ---
Consult Consult Specialty:: Gastroenterology Referred by:: Dr. Macias Reason for Consultation:: Abdominal pain - History of Present Illness Chief Complaint: Chest and abdominal pain History of Present Illness: 72F presents with severe chest and abdominal pain. The pain radiated into her back. She had nausea but denies vomiting. Her lipase and amylase reveal transient elevations and sonography reveals gallstones but no ductal dilation. The GB wall is thickened. She tells me that she had a similar attack several years ago but no etiology was found. She denies any h/o pancreatitis or other GI problems. She has never had an EGD or a colonoscopy. She never drinks alcohol. Her pain has resolved. 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, Other (Chronic lower back pain, degenerative disc disease) Cardio/Vascular: Yes: CAD, HTN, PR Hepatobiliary: Yes: Cholelithiasis ...: No Endocrine: Yes: Diabetes Mellitus - Past Surgical History Past Surgical History: Yes: Tonsillectomy - Alcohol/Substance Use Hx Alcohol Use: No - Smoking History Smoking history: Former smoker Have you smoked in the past 12 months: No Aproximately how many cigarettes per day: 20 If you are a former smoker, when did you quit?: 2013 - Social History Usual Living Arrangement: Jail ADL: Support Services 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 Place of : [facility] History of Recent Travel: No Home Medications - Allergies Allergies/Adverse Reactions: Allergies Allergy/AdvReac Type Severity Reaction Status Date / Time Penicillins Allergy Unknown Verified 01/04/18 17:47 - Home Medications Home Medications: Ambulatory Orders Acetaminophen W/ Codeine #3 [Tylenol # 3 -] 1 tab PO QID 01/04/18 Acetaminophen [Tylenol] 650 mg PO QID 01/04/18 Ascorbic Acid [Vitamin C] 500 mg PO DAILY 01/04/18 Baclofen 10 mg PO TID 01/04/18 Carvedilol [Coreg -] 25 mg PO BID 01/04/18 Clopidogrel Bisulfate [Clopidogrel] 75 mg PO DAILY 01/04/18 Glipizide 5 mg PO DAILY 01/04/18 Losartan Potassium 25 mg PO DAILY 01/04/18 Metformin HCl [Metformin HCl ER] 1,000 mg PO DAILY 01/04/18 Metformin HCl [Metformin HCl ER] 500 mg PO DAILY 01/04/18 Nitroglycerin [Nitrostat] 0.4 mg SL ASDIR 01/04/18 Rosuvastatin Calcium [Crestor] 20 mg PO DAILY 01/04/18 Thiamine Mononitrate [Vitamin B-1] 100 mg PO DAILY 01/04/18 hydrALAZINE HCL [Apresoline -] 10 mg PO TID 01/04/18 Family Disease History - Family Disease History Family Disease History: Heart Disease: Father ( [place] age 53), Other: Mother ( lived to 103), Son (healthy) Review of Systems - Review of Systems Constitutional: reports: No Symptoms Eyes: reports: No Symptoms HENT: reports: No Symptoms Neck: reports: No Symptoms Cardiovascular: reports: Chest Pain Gastrointestinal: reports: Abdominal Pain Musculoskeletal: reports: Back Pain Physical Exam-GI Vital Signs: Vital Signs Temperature 98.5 F 01/06/18 18:00 Pulse Rate 76 01/06/18 18:00 Respiratory Rate 20 01/06/18 18:00 Blood Pressure 140/85 01/06/18 18:00 O2 Sat by Pulse Oximetry (%) 96 01/05/18 21:00 CBC,CMP WBC 7.4 K/mm3 (4.0-10.0) 01/06/18 05:30 RBC 3.79 M/mm3 (3.60-5.2) 01/06/18 05:30 Hgb 10.2 GM/dL (10.7-15.3) L 01/06/18 05:30 Hct 30.1 % (32.4-45.2) L 01/06/18 05:30 MCV 79.4 fl (80-96) L 01/06/18 05:30 MCH 26.9 pg (25.7-33.7) 01/06/18 05:30 MCHC 33.9 g/dl (32.0-36.0) 01/06/18 05:30 RDW 15.6 % (11.6-15.6) 01/06/18 05:30 Plt Count 243 K/MM3 (134-434) D 01/06/18 05:30 MPV 7.2 fl (7.5-11.1) L D 01/06/18 05:30 Absolute Neuts (auto) 7.2 # 01/04/18 20:12 Neutrophils % 83.3 % (42.8-82.8) H D 01/04/18 20:12 Lymphocytes % 11.5 % (8-40) D 01/04/18 20:12 Monocytes % 3.7 % (3.8-10.2) L 01/04/18 20:12 Eosinophils % 1.1 % (0-4.5) 01/04/18 20:12 Basophils % 0.4 % (0-2.0) 01/04/18 20:12 Nucleated RBC % 0 % (0-0) 01/04/18 20:12 Sodium 141 mmol/L (136-145) 01/06/18 05:30 Potassium 4.0 mmol/L (3.5-5.1) 01/06/18 05:30 Chloride 100 mmol/L (98-107) 01/06/18 05:30 Carbon Dioxide 31 mmol/L (21-32) 01/06/18 05:30 Anion Gap 10 (8-16) 01/06/18 05:30 BUN 22 mg/dL (7-18) H 01/06/18 05:30 Creatinine 1.0 mg/dL (0.55-1.02) 01/06/18 05:30 Creat Clearance w eGFR 54.35 (>60) 01/06/18 05:30 Random Glucose 180 mg/dL (74-106) H 01/06/18 05:30 Hemoglobin A1c % 7.3 % (4.8-6.0) H 01/06/18 05:30 Calcium 9.1 mg/dL (8.5-10.1) 01/06/18 05:30 Magnesium 2.0 mg/dL (1.8-2.4) 01/04/18 17:43 Total Bilirubin 0.5 mg/dL (0.2-1.0) 01/06/18 05:30 AST 15 U/L (15-37) 01/06/18 05:30 ALT 22 U/L (12-78) 01/06/18 05:30 Alkaline Phosphatase 56 U/L (45-117) 01/06/18 05:30 Creatine Kinase 45 IU/L (26-192) 01/04/18 17:43 Troponin I 0.03 ng/ml (0.00-0.05) 01/06/18 05:30 B-Natriuretic Peptide 16784.39 pg/ml (5-125) H 01/04/18 20:20 Total Protein 6.9 g/dl (6.4-8.2) 01/06/18 05:30 Albumin 3.8 g/dl (3.4-5.0) 01/06/18 05:30 Triglycerides 192 mg/dL (35-160) H 01/06/18 05:30 Cholesterol 90 mg/dL (50-200) 01/06/18 05:30 Total LDL Cholesterol 36 mg/dL (5-100) 01/06/18 05:30 HDL Cholesterol 39 mg/dL (40-60) L 01/06/18 05:30 Total Amylase 479 U/L (25-115) H 01/06/18 05:30 Lipase 1187 U/L (73-393) H 01/06/18 05:30 TSH 4.48 uIU/ml (0.358-3.74) H 01/06/18 05:30 Free T4 1.05 ng/dl (0.76-1.46) 01/06/18 05:30 Current Medications Generic Name Dose Route Start Last Admin Trade Name Freq PRN Reason Stop Dose Admin Aspirin 81 mg 01/06/18 10:00 01/06/18 10:15 Asa - PO 81 mg DAILY [facility] Administration Carvedilol 12.5 mg 01/05/18 22:00 01/06/18 10:15 Coreg - PO 12.5 mg BID [facility] Administration Carvedilol 25 mg 01/06/18 22:00 Coreg - PO BID [facility] Clopidogrel Bisulfate 75 mg 01/06/18 10:00 01/06/18 10:15 Plavix - PO 75 mg DAILY [facility] Administration Dextrose/Sodium Chloride 1,000 mls @ 42 mls/hr 01/05/18 19:00 01/05/18 20:31 D5-1/2ns - IV 42 mls/hr ASDIR [facility] Administration Losartan Potassium 25 mg 01/06/18 10:00 01/06/18 10:15 Cozaar - PO 25 mg DAILY [facility] Administration Nitroglycerin 0.4 mg 01/05/18 18:53 Nitrostat - SL PRN PRN CHEST PAIN AFTER ECG Rosuvastatin Calcium 20 mg 01/05/18 22:00 01/05/18 22:16 Crestor - PO 20 mg HS [facility] Administration Constitutional: Yes: Anxious Eyes: Yes: Conjunctiva Clear HENT: Yes: Normocephalic Neck: Yes: Supple Cardiovascular: Yes: Regular Rate and Rhythm Respiratory: Yes: CTA Bilaterally Gastrointestinal Inspection: Yes: WNL ...Auscultate: Yes: Normoactive Bowel Sounds ...Palpate: Yes: Soft, Other (nontender) ...Rectal Exam: Yes: Deferred (as patient declines) Edema: No Neurological: Yes: Alert Labs: CBC, BMP 01/06/18 05:30 01/06/18 05:30 Laboratory Tests 01/04/18 01/04/18 01/05/18 17:43 17:43 10:30 Hgb MCV Hemoglobin A1c % Total Bilirubin 0.4 AST 21 ALT Alkaline Phosphatase 54 Triglycerides Total Amylase 2042 H Lipase 395 H 01/05/18 01/06/18 01/06/18 19:30 05:30 05:30 Hgb 10.2 L MCV 79.4 L Hemoglobin A1c % Total Bilirubin 0.5 AST 15 ALT 22 Alkaline Phosphatase 56 Triglycerides 192 H Total Amylase 961 H 479 H Lipase 2178 H 1187 H 01/06/18 05:30 Hgb MCV Hemoglobin A1c % 7.3 H Total Bilirubin AST ALT Alkaline Phosphatase Triglycerides Total Amylase Lipase Imaging - Results Ultrasound: Report Reviewed (Jarod Alba Name: KELSE[facility]HELPS DEPARTMENT OF RADIOLOGY Phys: Samm Penny MD : 1945 Age: 72 Sex: F [facility] Acct: [id number] Loc: [id number] [facility] Exam Date: 01/05/18 Status: [place] [address] Unit Number: [id number] EXAM#: TYPE/EXAM: RESULT: [id number] US/ABDOMEN US -LIMITED Right upper quadrant abdomen ultrasound Clinical information: elevated liver enzymes In comparison to a prior ultrasound study of 07/16/2009 interval development of several small gallbladder calculi is noted. The gallbladder appears to be slightly contracted with minimal to mild diffuse wall thickening. No pericholecystic fluid is noted. The common bile duct diameter appears within normal limits measuring 0.5 cm. No gross intraductal calculus is visualized. The liver appears borderline in overall size. No obvious mass lesion is seen. Evaluation in this regard is somewhat limited as the patient was unable to fully cooperate at this time in regards to optimal positioning. Hepatic echogenicity demonstrates no definite abnormality. No free intraperitoneal fluid is seen. The partially visualized pancreas demonstrates no obvious pathology. There is no right hydronephrosis. As on the previous exam an approximately 7 cm right renal cortical cyst is noted. Impression: Cholelithiasis is noted. The gallbladder appears slightly contracted with minimal to mild diffuse wall thickening. The appearance may be on a physiologic basis versus possible chronic cholecystitis. If clinically indicated correlate with 1 - 2 week follow -up sonography with optimal preparative fasting. There is no definite biliary tract dilatation. Borderline hepatic size. No gross mass lesion is identified. Reported By: Hansel Garcia MD 01/05/182124 Technologist: Meredith Chiu Transcribed Date/Time: 01/05/182124 Healthcare Management Consultant: Hansel Garcia Printed Date/Time: By: Signed by: Hansel Garcia Signed on: 05-Jan-2018 21:27) Problem List - Problems (1) Pancreatitis due to biliary obstruction Assessment/Plan: I believe that Kelsey is recovering from an episode of biliary pancreatitis. I advised an MRCP to determine whether or not she has residual CBD stones that would necessitate an ERCP which I also described. I told her that she will need a cholecystectomy to prevent recurrent episodes as well as cholangitis and/or cholecystitis. She adamantly refuses all of these measures, even the MRCP. I also advised panendoscopy to exclude a neoplasm, ulcer and vascular ectasias among other etiologies as the cause of her microcytic anemia. She declined these as well. I asked her whether she wanted me to discuss these issues with her children but she replied absolutely not, " I make my own decisions". I will try clear liquids and the diet can be advanced as tolerated. Please recall us if she changes her mind or is deemed incompetent to make such decisions. Code(s): K85.90 - ACUTE PANCREATITIS WITHOUT NECROSIS OR INFECTION, UNSP; K83.1 - OBSTRUCTION OF BILE DUCT (2) Abdominal pain Code(s): R10.9 - UNSPECIFIED ABDOMINAL PAIN (3) Gallstones Code(s): K80.20 - CALCULUS OF GALLBLADDER W/O CHOLECYSTITIS W/O OBSTRUCTION (4) Microcytic anemia Code(s): D50.9 - IRON DEFICIENCY ANEMIA, UNSPECIFIED
[2018-01-06] MEDS: ROSUVASTATIN CA 20 MG TABLET (FP) PO SCH (21:44)
[2018-01-06] MEDS: CARVEDILOL 25 MG TABLET (FP) PO SCH (21:44)
[2018-01-06] MEDS: DEXTROSE 5%-0.45% SALINE 1,000 ML IV SCH (21:59)
[2018-01-07] MEDS: ACETAMINOPHEN 325 MG TABLET (FP) PO PRN ×3 (00:57→16:30)
[2018-01-07 08:09] LABS: BASO % 0.6 % (0-2.0); EOS % 2.8 % (0-4.5); HEMATOCRIT 29.6 % (32.4-45.2); HEMOGLOBIN 9.9 GM/dL (10.7-15.3); MCH 26.5 pg (25.7-33.7); MCHC 33.5 g/dl (32.0-36.0); MEAN CELL VOLUME 78.9 fl (80-96); MEAN PLT VOLUME 7.6 fl (7.5-11.1); MONO % 8.7 % (3.8-10.2); NEUT % 66.9 % (42.8-82.8); PLATELET COUNT 246 K/MM3 (134-434); RBC 3.75 M/mm3 (3.60-5.2); RDW 15.1 % (11.6-15.6); RETICULOCYTES 1.08 % (0.5-1.5); WHITE BLOOD COUNT 6.6 K/mm3 (4.0-10.0)
[2018-01-07 08:10] LABS: ALBUMIN 3.6 g/dl (3.4-5.0); BILIRUBIN,DIRECT 0.2 mg/dL (0.0-0.2)
[2018-01-07 08:15] LABS: BILIRUBIN,TOTAL 0.5 mg/dL (0.2-1.0); TOT PROT 6.4 g/dl (6.4-8.2)
[2018-01-07] MEDS: LOSARTAN POTASSIUM 25 MG TABLET PO SCH (09:10)
[2018-01-07] MEDS: CARVEDILOL 12.5 MG TABLET (FP) PO SCH ×2 (09:10→21:29)
[2018-01-07] MEDS: CARVEDILOL 25 MG TABLET (FP) PO SCH ×2 (09:10→21:35)
[2018-01-07] MEDS: CLOPIDOGREL BISULFATE 75 MG TABLET (FP) PO SCH (09:10)
[2018-01-07] MEDS: ASPIRIN 81 MG CHEWABLE TABLETS PO SCH (09:10)
--- NOTE | 2018-01-07 13:00 | PN ---
Progress Note, Physician Chief Complaint: Wants to eat History of Present Illness: Dr Acevedos GI consult appreciated Advised ERCP and possible cholecystectomy - Current Medication List Current Medications: Active Medications Acetaminophen (Tylenol -) 650 mg PO Q6H PRN PRN Reason: FEVER Last Admin: 01/07/18 09:10 Dose: 650 mg Aspirin (Asa -) 81 mg PO DAILY [facility] Last Admin: 01/07/18 09:10 Dose: 81 mg Carvedilol (Coreg -) 12.5 mg PO BID [facility] Last Admin: 01/07/18 09:10 Dose: 12.5 mg Carvedilol (Coreg -) 25 mg PO BID [facility] Last Admin: 01/07/18 09:10 Dose: 25 mg Clopidogrel Bisulfate (Plavix -) 75 mg PO DAILY [facility] Last Admin: 01/07/18 09:10 Dose: 75 mg Dextrose/Sodium Chloride (D5-1/2ns -) 1,000 mls @ 42 mls/hr IV ASDIR [facility] Last Admin: 01/06/18 21:59 Dose: 42 mls/hr Losartan Potassium (Cozaar -) 25 mg PO DAILY [facility] Last Admin: 01/07/18 09:10 Dose: 25 mg Nitroglycerin (Nitrostat -) 0.4 mg SL PRN PRN PRN Reason: CHEST PAIN AFTER ECG Rosuvastatin Calcium (Crestor -) 20 mg PO HS [facility] Last Admin: 01/06/18 21:44 Dose: 20 mg - Objective Vital Signs: Vital Signs Temperature 97.6 F 01/07/18 09:00 Pulse Rate 74 01/07/18 09:00 Respiratory Rate 18 01/07/18 09:00 Blood Pressure 138/72 01/07/18 09:00 O2 Sat by Pulse Oximetry (%) 97 01/06/18 21:00 Constitutional: Yes: No Distress Eyes: Yes: WNL HENT: Yes: WNL Neck: Yes: WNL Cardiovascular: Yes: WNL Respiratory: Yes: WNL Gastrointestinal: Yes: WNL ...Rectal Exam: Yes: WNL, Deferred Genitourinary: Yes: WNL Musculoskeletal: Yes: Muscle Weakness Edema: No Peripheral Pulses WNL: Yes Integumentary: Yes: WNL Labs: CBC, BMP 01/07/18 05:30 01/06/18 05:30
--- NOTE | 2018-01-07 14:04 | PN ---
Progress Note (short form) - Note Progress Note: 72 old female Known case of CAD, remote [place], type II DM, hypertension, hypertension, s/p CVA with dementia, CHF related to LV diastolic dysfunction( see echo report)and recent pancreatitis related to gall stones. Currently pain free, no SOB, no abdominal pain or discomfort, nausea or vomiting. no further edema. Refused to undergo the recommended procedure. Active Medications Acetaminophen (Tylenol -) 650 mg PO Q6H PRN PRN Reason: FEVER Last Admin: 01/07/18 09:10 Dose: 650 mg Aspirin (Asa -) 81 mg PO DAILY [facility] Last Admin: 01/07/18 09:10 Dose: 81 mg Carvedilol (Coreg -) 12.5 mg PO BID [facility] Last Admin: 01/07/18 09:10 Dose: 12.5 mg Carvedilol (Coreg -) 25 mg PO BID [facility] Last Admin: 01/07/18 09:10 Dose: 25 mg Clopidogrel Bisulfate (Plavix -) 75 mg PO DAILY [facility] Last Admin: 01/07/18 09:10 Dose: 75 mg Dextrose/Sodium Chloride (D5-1/2ns -) 1,000 mls @ 42 mls/hr IV ASDIR [facility] Last Admin: 01/06/18 21:59 Dose: 42 mls/hr Losartan Potassium (Cozaar -) 25 mg PO DAILY [facility] Last Admin: 01/07/18 09:10 Dose: 25 mg Nitroglycerin (Nitrostat -) 0.4 mg SL PRN PRN PRN Reason: CHEST PAIN AFTER ECG Rosuvastatin Calcium (Crestor -) 20 mg PO HS [facility] Last Admin: 01/06/18 21:44 Dose: 20 mg 72 year old female in no acute distress, no pallor, cyanosis, clubbing or jaundice. Last Vital Signs Temp Pulse Resp BP Pulse Ox 97.6 F 74 18 138/72 97 01/07/18 09:00 01/07/18 09:00 01/07/18 09:00 01/07/18 09:00 01/06/18 21:00 NECK: Supple, no JVD, carotids1+. HEART: PMI in the 5th ICS, S1 and S2 normal ZIA II/ 2nd rt. ICS. No gallops. LUNGS: Fine creps at both bases. Abdomen: Soft, non tender, no organomegaly no palpable masses. EXTREMITIES: 1-2+ pedal edema, no calf tenderness. IMPRESSION: 1. Acute/recent pancreatitis. 2. Cholelithiasis. 3. CHF related to LV diastolic dysfunction. 4. CAD, s/p [place], angina pectoris. 5. Hypertension. 6. DM type II. 7. S/p CVA. 8. H/o dementia. 9. Anemia. RECOMMENDATIONS: 1. Increase dose of careg back to 25mg. Q12h. 2. Lasix 20mg. po daily 3 Close f/u of BMP.
[2018-01-07] MEDS: DEXTROSE 5%-0.45% SALINE 1,000 ML IV SCH (19:30)
[2018-01-07] MEDS: ROSUVASTATIN CA 20 MG TABLET (FP) PO SCH (21:35)
[2018-01-07] MEDS ORDERED: ZOLPIDEM TARTRATE 5 MG TABLET PO ONE (22:30)
[2018-01-08] MEDS: ACETAMINOPHEN 325 MG TABLET (FP) PO PRN ×3 (06:42→22:06)
[2018-01-08 07:21] LABS: ALBUMIN 3.5 g/dl (3.4-5.0); ANION GAP 7 (8-16); BLOOD UREA NITROGEN 22 mg/dL (7-18); CALCIUM 8.8 mg/dL (8.5-10.1); CHLORIDE 103 mmol/L (98-107); CO2 32 mmol/L (21-32); GLUCOSE,RANDOM 182 mg/dL (74-106); MAGNESIUM 2.2 mg/dL (1.8-2.4); POTASSIUM 3.8 mmol/L (3.5-5.1); SODIUM 142 mmol/L (136-145)
[2018-01-08 07:24] LABS: ALK PHOS 56 U/L (45-117); BILIRUBIN,TOTAL 0.5 mg/dL (0.2-1.0); CREATININE 1.1 mg/dL (0.55-1.02); PHOSPHOROUS 3.7 mg/dL (2.5-4.9); SGOT/AST 18 U/L (15-37); SGPT/ALT 22 U/L (12-78); TOT PROT 6.4 g/dl (6.4-8.2)
[2018-01-08] MEDS: LOSARTAN POTASSIUM 25 MG TABLET PO SCH (09:05)
[2018-01-08] MEDS: CLOPIDOGREL BISULFATE 75 MG TABLET (FP) PO SCH (09:05)
[2018-01-08] MEDS: ASPIRIN 81 MG CHEWABLE TABLETS PO SCH (09:05)
[2018-01-08] MEDS: CARVEDILOL 25 MG TABLET (FP) PO SCH ×2 (09:05→22:06)
[2018-01-08] MEDS: CARVEDILOL 12.5 MG TABLET (FP) PO SCH (09:06)
--- NOTE | 2018-01-08 13:34 | PN ---
GI Progress Note Subjective: GI Note: Kelsey is pain free and tolerating solids. her pancreatitis is resolved as CRP is just 1.2. She continues to refuse to consider GB surgery and ERCP. I have discussed her situation with her son Leonardo. I informed him of the risks of ascending cholangitis leading to sepsis and of recurrent pancreatitis if she has a residual CBD stone or fails to have her GB removed. He tells me that we should honor his mother's decision and allow her to return to the snf where he thinks he and his brother will be able to subsequently change her mind. I informed Kelsey of this discussion. She wants to return to [facility] - Objective Vital Signs: Vital Signs Temperature 98.2 F 01/08/18 10:00 Pulse Rate 72 01/08/18 10:00 Respiratory Rate 18 01/08/18 10:00 Blood Pressure 114/52 01/08/18 10:00 O2 Sat by Pulse Oximetry (%) 95 01/08/18 10:00 Laboratory Tests 01/04/18 01/07/18 01/07/18 20:12 05:30 05:30 WBC 8.6 6.6 Total Bilirubin AST ALT Alkaline Phosphatase C-Reactive Protein 1.2 H Total Amylase 206 H Lipase 762 H 01/08/18 05:30 WBC Total Bilirubin 0.5 AST 18 ALT 22 Alkaline Phosphatase 56 C-Reactive Protein Total Amylase Lipase Constitutional: No Distress Eyes: Yes: Conjunctiva Clear ...Auscultate: Yes: Normoactive Bowel Sounds ...Palpate: Yes: Soft, Other (nontender) Labs: CBC, BMP 01/07/18 05:30 01/08/18 05:30 Problem List - Problems (1) Pancreatitis due to biliary obstruction Assessment/Plan: Resolved biliary pancreatitis. Refusing MRCP and cholecystectomy. I await her decision after discussion with her sons and hope that she kaela change her mind and followup in our office where I will also again advise panendoscopy to exclude a neoplasm, ulcer and vascular ectasias among other etiologies as the cause of her microcytic anemia. Given her refusal of further workup and surgery I have no GI objections to discharge. Code(s): K85.90 - ACUTE PANCREATITIS WITHOUT NECROSIS OR INFECTION, UNSP; K83.1 - OBSTRUCTION OF BILE DUCT (2) Abdominal pain Code(s): R10.9 - UNSPECIFIED ABDOMINAL PAIN (3) Gallstones Code(s): K80.20 - CALCULUS OF GALLBLADDER W/O CHOLECYSTITIS W/O OBSTRUCTION (4) Microcytic anemia Code(s): D50.9 - IRON DEFICIENCY ANEMIA, UNSPECIFIED
--- NOTE | 2018-01-08 13:59 | PN ---
Progress Note, Physician Chief Complaint: Feels better History of Present Illness: Refused ERCP ,Dr Morelos and her family aware of it - Current Medication List Current Medications: Active Medications Acetaminophen (Tylenol -) 650 mg PO Q6H PRN PRN Reason: FEVER Last Admin: 01/08/18 06:42 Dose: 650 mg Aspirin (Asa -) 81 mg PO DAILY [facility] Last Admin: 01/08/18 09:05 Dose: 81 mg Carvedilol (Coreg -) 25 mg PO BID [facility] Last Admin: 01/08/18 09:05 Dose: 25 mg Clopidogrel Bisulfate (Plavix -) 75 mg PO DAILY [facility] Last Admin: 01/08/18 09:05 Dose: 75 mg Dextrose/Sodium Chloride (D5-1/2ns -) 1,000 mls @ 42 mls/hr IV ASDIR [facility] Last Admin: 01/07/18 19:30 Dose: Not Given Losartan Potassium (Cozaar -) 25 mg PO DAILY [facility] Last Admin: 01/08/18 09:05 Dose: 25 mg Nitroglycerin (Nitrostat -) 0.4 mg SL PRN PRN PRN Reason: CHEST PAIN AFTER ECG Rosuvastatin Calcium (Crestor -) 20 mg PO HS [facility] Last Admin: 01/07/18 21:35 Dose: 20 mg - Objective Vital Signs: Vital Signs Temperature 98.2 F 01/08/18 10:00 Pulse Rate 72 01/08/18 10:00 Respiratory Rate 18 01/08/18 10:00 Blood Pressure 114/52 01/08/18 10:00 O2 Sat by Pulse Oximetry (%) 95 01/08/18 10:00 Constitutional: Yes: No Distress Eyes: Yes: WNL HENT: Yes: WNL Neck: Yes: WNL Cardiovascular: Yes: WNL Respiratory: Yes: WNL Gastrointestinal: Yes: WNL ...Rectal Exam: Yes: Deferred Musculoskeletal: Yes: Muscle Weakness Labs: CBC, BMP 01/07/18 05:30 01/08/18 05:30 Assessment/Plan GI consult Dr Acevedo Keep NPO 01/08/18 Sugar high ,willstart back on glucotrol
[2018-01-08] MEDS ORDERED: LORazepam 2 MG/ML SDV VIAL IM ONE (20:00)
[2018-01-08] MEDS: ROSUVASTATIN CA 20 MG TABLET (FP) PO SCH (22:06)
[2018-01-08] MEDS: DEXTROSE 5%-0.45% SALINE 1,000 ML IV SCH (22:14)
[2018-01-09] MEDS: ACETAMINOPHEN 325 MG TABLET (FP) PO PRN (06:25)
[2018-01-09] MEDS ORDERED: glipiZIDE 5 MG TABLET (FP) PO SCH (07:00)
[2018-01-09 07:20] VITALS: BP 148/71; PULSE 66; TEMP 98.4
[2018-01-09] MEDS: CARVEDILOL 25 MG TABLET (FP) PO SCH (09:23)
[2018-01-09] MEDS: CLOPIDOGREL BISULFATE 75 MG TABLET (FP) PO SCH (09:23)
[2018-01-09] MEDS: ASPIRIN 81 MG CHEWABLE TABLETS PO SCH (09:23)
--- NOTE | 2018-01-09 09:29 | DS ---
Physical Examination Vital Signs: Vital Signs Temperature 98.4 F 01/09/18 06:20 Pulse Rate 66 01/09/18 06:20 Respiratory Rate 20 01/09/18 06:20 Blood Pressure 148/71 01/09/18 06:20 O2 Sat by Pulse Oximetry (%) 97 01/08/18 23:02 Findings/Remarks: Diagnosed to have cholecystitis due to gall stones She refused ERCP and further workups Constitutional: Yes: No Distress Eyes: Yes: WNL HENT: Yes: WNL Neck: Yes: WNL Cardiovascular: Yes: Regular Rate and Rhythm Respiratory: Yes: WNL Gastrointestinal: Yes: Normal Bowel Sounds ...Rectal Exam: Yes: Deferred Musculoskeletal: Yes: Muscle Weakness Neurological: Yes: Alert Psychiatric: Yes: Alert Labs: CBC, BMP 01/07/18 05:30 01/08/18 05:30 Discharge Summary Reason For Visit: CHEST PAIN Current Active Problems Abdominal pain (Acute) Chest pain (Acute) Gallstones (Acute) Microcytic anemia (Acute) Pancreatitis due to biliary obstruction (Acute) - Instructions Referrals: Grazyna Macias MD [Primary Care Provider] - - Home Medications Comprehensive Discharge Medication List: Ambulatory Orders Acetaminophen W/ Codeine #3 [Tylenol # 3 -] 1 tab PO QID 01/04/18 Acetaminophen [Tylenol] 650 mg PO QID 01/04/18 Ascorbic Acid [Vitamin C] 500 mg PO DAILY 01/04/18 Baclofen 10 mg PO TID 01/04/18 Carvedilol [Coreg -] 25 mg PO BID 01/04/18 Clopidogrel Bisulfate [Clopidogrel] 75 mg PO DAILY 01/04/18 Glipizide 5 mg PO DAILY 01/04/18 Losartan Potassium 25 mg PO DAILY 01/04/18 Metformin HCl [Metformin HCl ER] 1,000 mg PO DAILY 01/04/18 Metformin HCl [Metformin HCl ER] 500 mg PO DAILY 01/04/18 Nitroglycerin [Nitrostat] 0.4 mg SL ASDIR 01/04/18 Rosuvastatin Calcium [Crestor] 20 mg PO DAILY 01/04/18 Thiamine Mononitrate [Vitamin B-1] 100 mg PO DAILY 01/04/18 hydrALAZINE HCL [Apresoline -] 10 mg PO TID 01/04/18
--- NOTE | 2018-01-09 20:31 | EKG ---
Test Reason : Blood Pressure : / mmHG Vent. Rate : 064 BPM Atrial Rate : 064 BPM P-R Int : 158 ms QRS Dur : 106 ms QT Int : 406 ms P-R-T Axes : 054 -20 081 degrees QTc Int : 418 ms NORMAL SINUS RHYTHM INFERIOR INFARCT (CITED ON OR BEFORE 09-JUL-2010) ANTERIOR INFARCT , AGE UNDETERMINED T WAVE ABNORMALITY, CONSIDER LATERAL ISCHEMIA ABNORMAL ECG WHEN COMPARED WITH ECG OF 04-JAN-2018 17:32, ANTERIOR INFARCT IS NOW PRESENT QUESTIONABLE CHANGE IN INITIAL FORCES OF INFERIOR LEADS T WAVE INVERSION MORE EVIDENT IN LATERAL LEADS Confirmed by MD NOVA, MONA ([id number]) on 01/09/2018 8:31:14 PM [facility] Confirmed By:MONA BHATT MD
[2018-01-10 14:30] LABS: SERUM IRON SATURATION 11 % (15-55); TOTAL IRON BINDING CAPACITY 352 ug/dL (250-450); UIBC 315 ug/dL (118-369)
== END 2018-01-09 12:08 | DRG 438 ==
LOC: JER 17:09 → JERBED 21:26 → J4W 01-05 08:18 → OBSVTOIN 01-05 09:37 → J6S 01-08 16:31
PROVIDERS: ADMIT Internal Medicine; ATTEND Internal Medicine
DX: K85.90 Acute pancreatitis without necrosis or infection, unspecified (principal); K83.1 Obstruction of bile duct; K80.10 Calculus of gallbladder with chronic cholecystitis without obstruction; I50.30 Unspecified diastolic (congestive) heart failure; R07.9 Chest pain, unspecified; R10.9 Unspecified abdominal pain; D50.9 Iron deficiency anemia, unspecified; I25.10 Atherosclerotic heart disease of native coronary artery without angina pectoris; E11.9 Type 2 diabetes mellitus without complications; I11.0 Hypertensive heart disease with heart failure; F03.90 Unspecified dementia, unspecified severity, without behavioral disturbance, psychotic disturbance, mood disturbance, and anxiety
CPT/HCPCS: 36415; 71045-TC-FY; 76705-TC; 80053; 80061; 80076; 81003; 81015; 82150; 82550; 82728; 82962; 83036; 83540; 83550; 83690; 83721; 83735; 83880; 84100; 84439; 84443; 84481; 84484; 85025; 85027; 85044; 86140; 86301; 93005; 93010; 93306-TC; 99284-25; G0378; J0131

== ENCOUNTER 2019-02-11 19:35 | Emergency (ER) | payer OTHER ==
[2019-02-11 20:23] VITALS: BMI 28.5
[2019-02-11] MEDS ORDERED: CYCLOBENZAPRINE HCL 10 MG TABLET (FP) PO ONE (20:43)
--- NOTE | 2019-02-11 20:46 | PDOC ---
History of Present Illness - General History Source: Patient Exam Limitations: No Limitations - History of Present Illness Initial Comments: 02/11/19 21:02 73F w/ pmh of DM, CAD(h/o OR), CVA(x2, 4ys prior) brought in from [facility] for complaint of neck pain that has not resolved w/ acetaminophen. Patient has had constant chronic neck pain(severity 9/10) x4ys. Pain can be intermittent worse with extension/flexion/sidebend/rotation but not with specific movements. Patient does not recall MVC, fall, or other trauma 4ys prior. Denies new onset weakness to b/l UE. At [facility], gets around with WC and cane. Associated Symptoms: denies: chest pain, cough, diaphoresis, fever/chills, nausea/vomiting, shortness of breath <Darrick Llanes - Last Filed: 02/11/19 22:05> <Quincy Irene - Last Filed: 02/11/19 23:22> - General Chief Complaint: Chronic pain Stated Complaint: BACK PAIN Time Seen by Provider: 02/11/19 20:10 Past History - Travel Traveled outside of the country in the last 30 days: No Close contact w/someone who was outside of country & ill: No - Past Medical History Anemia: No Asthma: No Cancer: No Cardiac Disorders: Yes (2010) CVA: Yes COPD: No CHF: No Dementia: No Diabetes: Yes GI Disorders: Yes Disorders: No HTN: Yes Hypercholesterolemia: Yes Liver Disease: No Seizures: No Thyroid Disease: No - Surgical History Abdominal Surgery: No Appendectomy: No Cardiac Surgery: Yes (Stents 2010) Cholecystectomy: No Lung Surgery: No Neurologic Surgery: No Orthopedic Surgery: No - Family Disease History Family Disease History: Heart Disease: Father (HTN) - Immunization History Immunization Up to Date: Yes - Suicide/Smoking/Psychosocial Hx Smoking Status: No Smoking History: Former smoker Have you smoked in the past 12 months: No Number of Cigarettes Smoked Daily: 20 If you are a former smoker, when did you quit?: 2013 Information on smoking cessation initiated: No 'Breaking Loose' booklet given: 01/05/18 Hx Alcohol Use: No Drug/Substance Use Hx: No Substance Use Type: None Hx Substance Use Treatment: No <Darrick Llanes - Last Filed: 02/11/19 22:05> <Quincy Irene - Last Filed: 02/11/19 23:22> - Past Medical History Allergies/Adverse Reactions: Allergies Allergy/AdvReac Type Severity Reaction Status Date / Time Penicillins Allergy Unknown Verified 01/04/18 17:47 Home Medications: Ambulatory Orders Acetaminophen [Tylenol] 650 mg PO QID PRN 01/04/18 Ascorbic Acid [Vitamin C] 500 mg PO DAILY 01/04/18 Clopidogrel Bisulfate [Clopidogrel] 75 mg PO DAILY 01/04/18 Glipizide 5 mg PO DAILY 01/04/18 Thiamine Mononitrate [Vitamin B-1] 100 mg PO DAILY 01/04/18 hydrALAZINE HCL [Apresoline -] 10 mg PO TID 01/04/18 metFORMIN HCL [Metformin HCl ER] 1,500 mg PO AM 01/04/18 Aspirin [ASA -] 81 mg PO DAILY tab.chew 01/09/18 Carvedilol [Coreg -] 25 mg PO BID tablet 01/09/18 Losartan Potassium [Cozaar -] 25 mg PO DAILY tablet 01/09/18 Nitroglycerin Sublingual [Nitrostat -] 0.4 mg SL PRN PRN tab 01/09/18 Acetaminophen with Codeine [Tylenol with Codeine #3 Tablet] 1 each PO TID PRN Ascorbate Calcium [Vitamin C] 500 mg PO DAILY 02/11/19 Baclofen 10 mg PO DAILY 02/11/19 Ferrous Sulfate [Iron] 325 mg PO DAILY 02/11/19 Fluoxetine HCl 20 mg PO DAILY 02/11/19 Metformin HCl [Glucophage] 1,000 mg PO HS 02/11/19 Methyl Salicylate/Menthol [Bengay Greaseless Cream] 57 gm TP BID 02/11/19 Mirtazapine 15 mg PO HS 02/11/19 Multivitamin [Multiple Vitamins] 1 each PO DAILY 02/11/19 Ondansetron [Zofran *Odt*] 4 mg SL BID 02/11/19 Pantoprazole Sodium [Protonix] 40 mg PO DAILY 02/11/19 Polyvinyl Alcohol [Artificial Tears] 1 drop OD BID 02/11/19 Rosuvastatin [Crestor -] 10 mg PO HS 02/11/19 Sennosides [Senna] 8.6 mg PO HS 02/11/19 Sodium Phosphate,[place]-Dibasic [Fleet Enema] 133 ml RC DAILY PRN 02/11/19 Review of Systems - Review of Systems Able to Perform ROS?: Yes Is the patient limited Macedonian proficient: No Constitutional: No: Chills, Fever, Loss of Appetite, Weakness, Unexplained wgt Loss HEENTM: No: Blurred Vision, Double Vision Respiratory: No: Cough, Shortness of Breath Cardiac (ROS): No: Chest Pain, Irregular Heart Rate, Palpitations ABD/GI: No: Abdominal Distended, Constipated, Diarrhea, Nausea, Vomiting : No: Burning, Dysuria, Discharge Musculoskeletal: Yes: Muscle Pain (neck). No: Joint Pain Neurological: No: Headache, Numbness, Weakness, Dizziness <Darrick Llanes - Last Filed: 02/11/19 22:05> *Physical Exam - Vital Signs Last Vital Signs Temp Pulse Resp BP Pulse Ox 98.7 F 73 18 128/54 L 96 02/11/19 20:05 02/11/19 20:05 02/11/19 20:05 02/11/19 20:05 02/11/19 20:05 - Physical Exam General Appearance: Yes: Obese. No: Apparent Distress HEENT: negative: Pale Conjunctivae, Scleral Icterus (R), Scleral Icterus (L) Neck: positive: Other (TTP of Right cervical paraspinal muscles, firm Right cervical paraspinal muscles, mild TTP of diffuse cervical spine). negative: Trachea midline, Lymphadenopathy (R), Lymphadenopathy (L) Respiratory/Chest: positive: Lungs Clear, Normal Breath Sounds. negative: Respiratory Distress, Accessory Muscle Use, Labored Respiration, Crackles, Rales , Stridor, Wheezing Cardiovascular: positive: Regular Rate, S1, S2 Gastrointestinal/Abdominal: positive: Soft. 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 NML intact, Fully Oriented, Alert, Motor Strength 5/5 <Darrick Llanes - Last Filed: 02/11/19 22:05> - Vital Signs Last Vital Signs Temp Pulse Resp BP Pulse Ox 98.7 F 73 18 128/54 L 96 02/11/19 20:05 02/11/19 20:05 02/11/19 20:05 02/11/19 20:05 02/11/19 20:05 <TetoQuincy gallardo - Last Filed: 02/11/19 23:22> ED Treatment Course - RADIOLOGY Radiology Studies Ordered: Category Date Time Status SPINE-CERVICAL [RAD] Stat Radiology 02/11/19 20:44 Ordered <Darrick Llanes - Last Filed: 02/11/19 22:05> - Medications Given in the ED: ED Medications Discontinued Medications Generic Name Dose Route Start Last Admin Trade Name Edy PRN Reason Stop Dose Admin Cyclobenzaprine HCl 10 mg 02/11/19 20:43 02/11/19 21:17 Flexeril - PO 02/11/19 20:44 Not Given ONCE ONE <TetoQuincy - Last Filed: 02/11/19 23:22> Medical Decision Making - Medical Decision Making 02/11/19 21:30 73F w/ pmh of HTN, DM, CAD(MID), CVA(x2, 4ys prior) sent from [facility] for chronic neck pain likely 2/2 to muscle spasm - administer cyclobenzaprine - fu XR cervical neck <Darrick Llanes - Last Filed: 02/11/19 22:05> *DC/Admit/Observation/Transfer - Discharge Dispostion Decision to Admit order: Yes <Darrick Llanes - Last Filed: 02/11/19 22:05> - Discharge Dispostion Decision to Admit order: No <Quincy Irene - Last Filed: 02/11/19 23:22> Diagnosis at time of Disposition: Neck pain - Discharge Dispostion Disposition: [facility] Condition at time of disposition: Stable - Referrals Referrals: Grazyna Macias MD [Primary Care Provider] - - Patient Instructions Printed Discharge Instructions: DI for Chronic Neck Pain Additional Instructions: You were evaluated for your chronic neck pain. You refused administration of a muscle relaxant, cyclobenzaprine. Xray of the cervical spine did not show any acute abnormalities suggestive of recent trauma. You have some mild abnormalities in the curvature, likely due to chronic processes. The final interpretation of the xray will not return until tomorrow. You will be notified of any any new abnormalities. Please return to the ED if you experience: - severe worsening headaches - new onset weakness in your upper or lower extremities
[2019-02-11] MEDS ORDERED: CYCLOBENZAPRINE HCL 10 MG TABLET (FP) ONE (20:54)
--- NOTE | 2019-02-11 21:25 | PDOC ---
Documentation entered by Ele Kwon SCRIBE, acting as scribe for Quincy Irene MD. Quincy Irene MD: This documentation has been prepared by the Doyle flores Sammi, SCRIBE, under my direction and personally reviewed by me in its entirety. I confirm that the documentation accurately reflects all work, treatment, procedures, and medical decision making performed by me. Attending Attestation - Resident Resident Name: Darrick Llanes - ED Attending Attestation I have performed the following: I have examined & evaluated the patient, The case was reviewed & discussed with the resident, I agree w/resident's findings & plan, Exceptions are as noted - HPI HPI: 02/11/19 21:05 The patient is a 73 year old female, with significant PMH of HTN, HLD, DM, CAD w / MA, CVA 4 years ago x2, who presents to the emergency department from [facility] for evaluation of chronic neck pain. pain is worse in the R shoulder. She notes relief with tylenol #3 which was administered by detention prior to arrival to the ED. pt states she is not sure why she was sent here - states she has had workup in the past and nothing has changed , the pain is her typical pain. she has no neww numbness/tingling/waekness, no change in pain, denies headache, fever/chills, no recent trauma, denies n/v, cp, sob, abd pain, lower back pain, exremitiy pain. 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 - Medical Decision Making 02/11/19 20:30 73y hx of DM, HTN, CAD, CVA (RLE weakness), presents from [facility] for evaluation of intractable R neck pain fely tis constant for the past few years, worse with movement. pt notes the pain is the same as previous. denies any fever/chills, numbness/tingling/weakness. on exam pt has mnild ttp to R trapezius will obtain xray pt declines any pain meds if xray neg wlil dc to pmd for further management 02/11/19 23:[address] waters - had requested to admit pt for workup for neck pain, however pt declines to stay in the hospital, states she would like to be discharged and refused to be admitted. states her neck pain is unchanged from her chronic pain from the past 4 years
[2019-02-12 00:29] VITALS: BP 122/58; PULSE 72; TEMP 98.6
--- NOTE | 2019-02-12 11:03 | EKG ---
Test Reason : Blood Pressure : / mmHG Vent. Rate : 067 BPM Atrial Rate : 067 BPM P-R Int : 136 ms QRS Dur : 108 ms QT Int : 424 ms P-R-T Axes : 049 -56 008 degrees QTc Int : 448 ms NORMAL SINUS RHYTHM LEFT AXIS DEVIATION MINIMAL VOLTAGE CRITERIA FOR LVH, MAY BE NORMAL VARIANT ANTEROSEPTAL INFARCT (CITED ON OR BEFORE 09-JUL-2010) ABNORMAL ECG WHEN COMPARED WITH ECG OF 06-JAN-2018 10:10, CRITERIA FOR INFERIOR INFARCT ARE NO LONGER PRESENT QUESTIONABLE CHANGE IN INITIAL FORCES OF SEPTAL LEADS T WAVE INVERSION NOW EVIDENT IN INFERIOR LEADS T WAVE INVERSION NO LONGER EVIDENT IN ANTEROLATERAL LEADS Confirmed by LAMBERT ESPANA MD ([id number]) on 02/12/2019 11:02:52 AM Referred By: Confirmed By:LAMBERT ESPANA MD
== END 2019-02-12 00:48 ==
LOC: JER 19:35
DX: M54.2 Cervicalgia (principal); I10 Essential (primary) hypertension; E78.5 Hyperlipidemia, unspecified; E11.9 Type 2 diabetes mellitus without complications; I25.10 Atherosclerotic heart disease of native coronary artery without angina pectoris; I25.2 Old myocardial infarction; Z86.73 Personal history of transient ischemic attack (TIA), and cerebral infarction without residual deficits; Z87.891 Personal history of nicotine dependence; Z79.84 Long term (current) use of oral hypoglycemic drugs
CPT/HCPCS: 71045-TC-FY; 72050-TC-FY; 93005; 93010; 99283-25

== ENCOUNTER 2021-10-13 18:26 | Inpatient (IN) | payer OTHER ==
[2021-10-13] MEDS ORDERED: LACTATED RINGERS SOLUTION 1000 ML INFUS.BAG IV ONE ×2 (19:00→23:57)
[2021-10-13] MEDS ORDERED: VANCOMYCIN 1 GM in D5W (PRE-DOCKED) 1,000 MG/250 ML IVPB ONE (19:21)
[2021-10-13] MEDS ORDERED: MEROPENEM 1 GM in DEXTROSE 5%-WATER 100 ML IVPB ONE (19:21)
[2021-10-13] MEDS ORDERED: CALCIUM CHLORIDE 1 GM/10 ML *DISP.SYRIN IVPUSH ONE (19:22)
[2021-10-13] MEDS ORDERED: CALCIUM CHLORIDE 1 GM/10 ML *DISP.SYRIN ONE (19:39)
[2021-10-13] MEDS ORDERED: MEROPENEM 1 GM VIAL (RESTRICTED TO ID) IVPB ONE (19:39)
[2021-10-13] MEDS ORDERED: VANCOMYCIN 1 GRAM (PRE-DOCKED) 1,000 MG/250 ML BAG IVPB ONE (19:39)
[2021-10-13 20:35] LABS: HEMATOCRIT 37.2 % (32.4-45.2); HEMOGLOBIN 11.7 GM/dL (10.7-15.3); MCH 27.2 pg (25.7-33.7); MCHC 31.4 g/dl (32.0-36.0); MEAN CELL VOLUME 86.4 fl (80-96); MEAN PLT VOLUME 9.2 fl (7.5-11.1); PLATELET COUNT 289 10^3/uL (134-434); RDW 15.6 % (11.6-15.6); WHITE BLOOD COUNT 16.1 K/mm3 (4.0-10.0)
[2021-10-13 20:40] LABS: INR 1.39 (0.83-1.09)
[2021-10-13 20:42] LABS: ACTIVATED PTT 37.5 SECONDS (25.2-36.5)
[2021-10-13 20:50] LABS: CHLORIDE 122 mmol/L (98-107); SODIUM 154 mmol/L (136-145)
[2021-10-13 20:53] LABS: ALBUMIN 2.7 g/dl (3.4-5.0); ANION GAP 12 MMOL/L (8-16); CALCIUM 9.5 mg/dL (8.5-10.1); CO2 20 mmol/L (21-32); VENOUS BASE EXCESS -8.1 mmol/L (-2-2); VENOUS O2 SATURATION 75.2 % (70-80); VENOUS PCO2 46.6 mmHg (38-52); VENOUS PH 7.234 (7.310-7.410)
[2021-10-13 20:56] LABS: CREATININE 4.1 mg/dL (0.55-1.3); SGOT/AST 43 U/L (15-37); SGPT/ALT 30 U/L (13-61)
[2021-10-13 20:57] LABS: TOT PROT 6.7 g/dl (6.4-8.2)
[2021-10-13 20:58] LABS: BILIRUBIN,TOTAL 0.5 mg/dL (0.2-1)
[2021-10-13 20:59] LABS: ALK PHOS 249 U/L (45-117)
[2021-10-13 21:04] LABS: ANISOCYTOSIS 2+; MACROCYTOSIS 0; OVALOCYTE 1+; TOXIC GRANULATION 1+
[2021-10-13 21:25] LABS: BLOOD UREA NITROGEN 140.3 mg/dL (7-18); GLUCOSE,RANDOM 510 mg/dL (74-106)
[2021-10-13] MEDS ORDERED: INSULIN REGULAR HUMAN 100 UNITS/ML *VIAL IVPUSH ONE (21:59)
[2021-10-13] MEDS ORDERED: ACETAMINOPHEN 1000 MG/100 ML BAG IVPB ONE (22:40)
[2021-10-13] MEDS ORDERED: ACETAMINOPHEN INJECTION 100 ML IVPB ONE (23:27)
[2021-10-14 00:52] LABS: CHLORIDE 122 mmol/L (98-107); SODIUM 153 mmol/L (136-145)
[2021-10-14 00:54] LABS: ANION GAP 8 MMOL/L (8-16); CALCIUM 9.9 mg/dL (8.5-10.1); CO2 23 mmol/L (21-32)
[2021-10-14 00:55] LABS: GLUCOSE,RANDOM 384 mg/dL (74-106)
[2021-10-14 00:58] LABS: CREATININE 3.8 mg/dL (0.55-1.3)
[2021-10-14] MEDS ORDERED: LACTATED RINGERS SOLUTION 1,000 ML/1,000 ML INFUS.BAG IV SCH ×2 (01:00→11:45)
[2021-10-14 01:08] LABS: BLOOD UREA NITROGEN 135.6 mg/dL (7-18)
[2021-10-14 01:18] LABS: EPI CELLS >36 /uL (0-25.1); HYALINE CASTS 70 /uL (0-3.1); URINE APPEARANCE TURBID; URINE BACTERIA >9,000 /uL (0-1359); URINE BILIRUBIN NEGATIVE (NEGATIVE); URINE COLOR YELLOW; URINE GLUCOSE (UA) 1+ (NEGATIVE); URINE KETONE TRACE (NEGATIVE); URINE LEUK ESTERASE 3+ (NEGATIVE); URINE NITRITE POSITIVE (NEGATIVE); URINE PROTEIN 2+ (NEGATIVE); URINE UROBILINOGEN 0.2 mg/dL (0.2-1.0); URINE WBC 26089 /uL (0-25.8)
[2021-10-14] MEDS ORDERED: VANCOMYCIN 750 MG in DEXTROSE 5%-WATER - 150 ML IVPB SCH (01:45)
[2021-10-14] MEDS ORDERED: DEXTROSE 5%-LACTATED RINGERS 1,000 ML IV SCH (02:15)
[2021-10-14 02:30] LABS: URINE RBC 15 /uL (0-23.9)
[2021-10-14 05:45] LABS: CHLORIDE 121 mmol/L (98-107); SODIUM 152 mmol/L (136-145)
[2021-10-14 05:47] LABS: ANION GAP 9 MMOL/L (8-16); CALCIUM 9.2 mg/dL (8.5-10.1); CO2 23 mmol/L (21-32); GLUCOSE,RANDOM 398 mg/dL (74-106)
[2021-10-14 05:51] LABS: CREATININE 3.5 mg/dL (0.55-1.3)
[2021-10-14 05:59] LABS: BLOOD UREA NITROGEN 126.9 mg/dL (7-18)
[2021-10-14] MEDS ORDERED: INSULIN (NOVOLOG) ASPART 100 UNITS/ML 10ML VIAL SQ ONE (06:31)
[2021-10-14] MEDS: INSULIN SLIDING SCALE (NOVOLOG) 1 VIAL SQ SCH ×4 (06:55→21:24)
[2021-10-14] MEDS ORDERED: LACTATED RINGERS SOLUTION 1,000 ML/1,000 ML INFUS.BAG IV STA ×2 (09:06→16:33)
[2021-10-14 09:08] LABS: HEMATOCRIT 33.2 % (32.4-45.2); HEMOGLOBIN 10.4 GM/dL (10.7-15.3); MCH 27.2 pg (25.7-33.7); MCHC 31.3 g/dl (32.0-36.0); MEAN CELL VOLUME 86.9 fl (80-96); MEAN PLT VOLUME 9.6 fl (7.5-11.1); PLATELET COUNT 202 10^3/uL (134-434); RBC 3.82 M/mm3 (3.60-5.2); RDW 15.5 % (11.6-15.6); WHITE BLOOD COUNT 16.6 K/mm3 (4.0-10.0)
[2021-10-14] MEDS: MUPIROCIN 2% TOPICAL OINTMENT FOR DECOLONIZATION NS SCH ×2 (09:43→21:24)
[2021-10-14] MEDS ORDERED: MUPIROCIN 2% TOPICAL OINTMENT FOR DECOLONIZATION NS SCH (10:00)
[2021-10-14 10:43] LABS: ANISOCYTOSIS 1+; MACROCYTOSIS 0; PLATELET ESTIMATE NORMAL
[2021-10-14] MEDS ORDERED: SODIUM ZIRCONIUM CYCLOSILICATE (LOKELMA) 5 GM PACKET PO ONE (12:30)
[2021-10-14] MEDS: MEROPENEM 500 MG in DEXTROSE 5%-WATER 100 ML IVPB SCH (13:39)
[2021-10-14] MEDS ORDERED: DEXTROSE 5%-WATER 100 ML IVPB ONE (13:46)
[2021-10-14] MEDS ORDERED: MEROPENEM 500 MG VIAL (RESTRICTED TO ID) IVPB ONE (13:46)
[2021-10-14] MEDS ORDERED: SODIUM CHLORIDE 0.45% 1,000 ML IV SCH (18:15)
[2021-10-14] MEDS ORDERED: LACTATED RINGERS SOLUTION 1000 ML INFUS.BAG IV ONE (19:44)
[2021-10-14] MEDS ORDERED: MEROPENEM 500 MG in DEXTROSE 5%-WATER 100 ML IVPB SCH (22:00)
[2021-10-14] MEDS ORDERED: CHLORHEXIDINE GLUCONATE 4% CLEANSER FOR DECOLONIZATION TP SCH ×2 (22:00)
[2021-10-15] MEDS ORDERED: MEROPENEM 500 MG VIAL (RESTRICTED TO ID) IVPB ONE ×3 (01:07→23:27)
[2021-10-15] MEDS ORDERED: DEXTROSE 5%-WATER 100 ML IVPB ONE ×3 (01:07→23:27)
[2021-10-15] MEDS: MEROPENEM 500 MG in DEXTROSE 5%-WATER 100 ML IVPB SCH ×2 (01:08→12:28)
[2021-10-15] MEDS: INSULIN SLIDING SCALE (NOVOLOG) 1 VIAL SQ SCH ×4 (06:19→21:37)
[2021-10-15 06:49] LABS: HEMATOCRIT 37.3 % (32.4-45.2); HEMOGLOBIN 11.8 GM/dL (10.7-15.3); MCH 27.4 pg (25.7-33.7); MCHC 31.8 g/dl (32.0-36.0); MEAN CELL VOLUME 86.2 fl (80-96); MEAN PLT VOLUME 9.2 fl (7.5-11.1); PLATELET COUNT 166 10^3/uL (134-434); RBC 4.33 M/mm3 (3.60-5.2); RDW 15.8 % (11.6-15.6); WHITE BLOOD COUNT 24.9 K/mm3 (4.0-10.0)
[2021-10-15 07:09] LABS: CHLORIDE 118 mmol/L (98-107); SODIUM 148 mmol/L (136-145)
[2021-10-15 07:13] LABS: ALBUMIN 2.4 g/dl (3.4-5.0); CALCIUM 8.9 mg/dL (8.5-10.1)
[2021-10-15 07:14] LABS: ANION GAP 12 MMOL/L (8-16); CO2 18 mmol/L (21-32); GLUCOSE,RANDOM 238 mg/dL (74-106); MAGNESIUM 1.9 mg/dL (1.8-2.4)
[2021-10-15 07:17] LABS: CREATININE 2.8 mg/dL (0.55-1.3); PHOSPHOROUS 4.1 mg/dL (2.5-4.9); SGOT/AST 122 U/L (15-37); SGPT/ALT 59 U/L (13-61)
[2021-10-15 07:18] LABS: BILIRUBIN,TOTAL 0.6 mg/dL (0.2-1); TOT PROT 5.4 g/dl (6.4-8.2)
[2021-10-15 07:20] LABS: ALK PHOS 278 U/L (45-117)
[2021-10-15 07:25] LABS: BLOOD UREA NITROGEN 109.5 mg/dL (7-18)
[2021-10-15 08:53] LABS: ANISOCYTOSIS 1+; MACROCYTOSIS 0; PLATELET ESTIMATE DECREASED
[2021-10-15] MEDS: MUPIROCIN 2% TOPICAL OINTMENT FOR DECOLONIZATION NS SCH (10:14)
[2021-10-15] MEDS ORDERED: HEPARIN NA (PORCINE) 5,000 UNITS/ML 1ML VIAL SQ SCH (14:00)
[2021-10-15] MEDS: SODIUM CHLORIDE 0.45% 1,000 ML IV SCH (18:45)
[2021-10-15] MEDS: HEPARIN NA (PORCINE) 5,000 UNITS/ML 1ML VIAL SQ SCH (21:34)
[2021-10-15] MEDS ORDERED: VANCOMYCIN 750 MG in DEXTROSE 5%-WATER - 150 ML IVPB SCH (22:00)
[2021-10-15] MEDS ORDERED: VANCOMYCIN/WATER FOR INJ (PEG) 750 MG/150 ML BAG IVPB SCH ×2 (22:00)
[2021-10-16] MEDS ORDERED: MEROPENEM 500 MG in DEXTROSE 5%-WATER 100 ML IVPB SCH (00:45)
[2021-10-16] MEDS: SODIUM CHLORIDE 0.45% 1,000 ML IV SCH ×2 (05:22→22:32)
[2021-10-16] MEDS: HEPARIN NA (PORCINE) 5,000 UNITS/ML 1ML VIAL SQ SCH ×3 (05:25→22:33)
[2021-10-16] MEDS: INSULIN SLIDING SCALE (NOVOLOG) 1 VIAL SQ SCH ×4 (09:03→22:51)
[2021-10-16] MEDS ORDERED: AMINO ACIDS 4.25%/D5W 1,000 ML IV SCH (10:45)
[2021-10-16 11:26] LABS: HEMATOCRIT 28.6 % (32.4-45.2); HEMOGLOBIN 9.1 GM/dL (10.7-15.3); MCHC 31.7 g/dl (32.0-36.0); MEAN CELL VOLUME 85.2 fl (80-96); MEAN PLT VOLUME 9.4 fl (7.5-11.1); PLATELET COUNT 147 10^3/uL (134-434); RBC 3.35 M/mm3 (3.60-5.2); RDW 15.2 % (11.6-15.6); WHITE BLOOD COUNT 15.3 K/mm3 (4.0-10.0)
[2021-10-16 11:58] LABS: CALCIUM 8.1 mg/dL (8.5-10.1)
[2021-10-16 11:59] LABS: BLOOD UREA NITROGEN 103.9 mg/dL (7-18); MAGNESIUM 1.9 mg/dL (1.8-2.4)
[2021-10-16 12:01] LABS: CREATININE 2.5 mg/dL (0.55-1.3); PHOSPHOROUS 3.4 mg/dL (2.5-4.9)
[2021-10-16 12:03] LABS: BILIRUBIN,TOTAL 0.8 mg/dL (0.2-1); TOT PROT 4.4 g/dl (6.4-8.2)
[2021-10-16 12:10] LABS: ALBUMIN 1.8 g/dl (3.4-5.0)
[2021-10-16 12:19] LABS: ANISOCYTOSIS 0; MACROCYTOSIS 0; OVALOCYTE 2+; TEAR DROP CELLS 1+
[2021-10-16] MEDS: QUEtiapine FUMARATE 25 MG TABLET PO SCH ×3 (12:24→15:16)
[2021-10-16] MEDS: INSULIN (LEVEMIR) 100 UNITS/ML UNITS SQ SCH (22:40)
[2021-10-17] MEDS: AMINO ACIDS 4.25%/D5W 1,000 ML IV SCH ×3 (01:04→15:19)
[2021-10-17] MEDS: HEPARIN NA (PORCINE) 5,000 UNITS/ML 1ML VIAL SQ SCH ×3 (06:25→22:25)
[2021-10-17] MEDS: INSULIN SLIDING SCALE (NOVOLOG) 1 VIAL SQ SCH ×4 (06:31→22:25)
[2021-10-17] MEDS ORDERED: LORazepam 2 MG/ML SDV VIAL IVPUSH ONE (08:15)
[2021-10-17] MEDS: SODIUM CHLORIDE 0.45% 1,000 ML IV SCH ×2 (09:47→19:15)
[2021-10-17] MEDS: QUEtiapine FUMARATE 25 MG TABLET PO SCH (09:52)
[2021-10-17] MEDS ORDERED: MEROPENEM 1 GM in DEXTROSE 5%-WATER 100 ML IVPB SCH (12:30)
[2021-10-17] MEDS ORDERED: DEXTROSE 5%-WATER 100 ML IVPB ONE (15:14)
[2021-10-17] MEDS ORDERED: MEROPENEM 1 GM VIAL (RESTRICTED TO ID) IVPB ONE (15:14)
[2021-10-17] MEDS: INSULIN (LEVEMIR) 100 UNITS/ML UNITS SQ SCH (22:25)
[2021-10-18] MEDS: SODIUM CHLORIDE 0.45% 1,000 ML IV SCH ×2 (03:40→17:40)
[2021-10-18] MEDS: LORazepam 2 MG/ML SDV VIAL IVPUSH PRN (03:40)
[2021-10-18] MEDS ORDERED: ACETAMINOPHEN 325 MG TABLET (FP) PO ONE (05:00)
[2021-10-18] MEDS: HEPARIN NA (PORCINE) 5,000 UNITS/ML 1ML VIAL SQ SCH ×3 (05:31→21:45)
[2021-10-18] MEDS: INSULIN SLIDING SCALE (NOVOLOG) 1 VIAL SQ SCH ×4 (06:54→21:45)
[2021-10-18 09:13] LABS: EOS % 1.1 % (0-4.5); HEMATOCRIT 24.8 % (32.4-45.2); HEMOGLOBIN 8.1 GM/dL (10.7-15.3); LYMPH % 7.5 % (8-40); MCH 27.3 pg (25.7-33.7); MCHC 32.5 g/dl (32.0-36.0); MEAN CELL VOLUME 83.8 fl (80-96); MEAN PLT VOLUME 9.3 fl (7.5-11.1); MONO % 5.5 % (3.8-10.2); NEUT % 85.9 % (42.8-82.8); PLATELET COUNT 198 10^3/uL (134-434); RBC 2.96 M/mm3 (3.60-5.2); RDW 14.9 % (11.6-15.6); WHITE BLOOD COUNT 13.7 K/mm3 (4.0-10.0)
[2021-10-18 09:34] LABS: CALCIUM 7.6 mg/dL (8.5-10.1)
[2021-10-18 09:35] LABS: BLOOD UREA NITROGEN 84.4 mg/dL (7-18)
[2021-10-18 09:38] LABS: CREATININE 1.8 mg/dL (0.55-1.3)
[2021-10-18] MEDS: QUEtiapine FUMARATE 25 MG TABLET PO SCH (10:47)
[2021-10-18] MEDS ORDERED: DEXTROSE 5%-WATER 100 ML IVPB ONE (14:02)
[2021-10-18] MEDS ORDERED: MEROPENEM 500 MG VIAL (RESTRICTED TO ID) IVPB ONE (14:02)
[2021-10-18] MEDS: MEROPENEM 500 MG in DEXTROSE 5%-WATER 100 ML IVPB SCH (14:09)
[2021-10-18] MEDS: AMINO ACIDS 4.25%/D5W 1,000 ML IV SCH (15:12)
[2021-10-18 21:19] VITALS: BMI 20.5
[2021-10-19] MEDS: LORazepam 2 MG/ML SDV VIAL IVPUSH PRN ×2 (00:20→09:55)
[2021-10-19] MEDS: HEPARIN NA (PORCINE) 5,000 UNITS/ML 1ML VIAL SQ SCH ×3 (05:56→22:43)
[2021-10-19] MEDS: INSULIN SLIDING SCALE (NOVOLOG) 1 VIAL SQ SCH ×4 (06:16→22:45)
[2021-10-19] MEDS: AMINO ACIDS 4.25%/D5W 1,000 ML IV SCH (06:19)
[2021-10-19] MEDS ORDERED: AMINO ACIDS 4.25%/D5W 1,000 ML IV SCH (07:21)
[2021-10-19 08:18] LABS: CALCIUM 7.5 mg/dL (8.5-10.1)
[2021-10-19 08:19] LABS: BLOOD UREA NITROGEN 93.4 mg/dL (7-18)
[2021-10-19 08:22] LABS: CREATININE 1.8 mg/dL (0.55-1.3)
[2021-10-19 08:23] LABS: BASO % 0.1 % (0-2.0); EOS % 0.9 % (0-4.5); HEMATOCRIT 29.4 % (32.4-45.2); HEMOGLOBIN 9.3 GM/dL (10.7-15.3); LYMPH % 6.8 % (8-40); MCH 26.9 pg (25.7-33.7); MCHC 31.5 g/dl (32.0-36.0); MEAN CELL VOLUME 85.4 fl (80-96); MONO % 5.5 % (3.8-10.2); NEUT % 86.7 % (42.8-82.8); PLATELET COUNT 223 10^3/uL (134-434); RBC 3.45 M/mm3 (3.60-5.2); RDW 15.4 % (11.6-15.6); WHITE BLOOD COUNT 11.5 K/mm3 (4.0-10.0)
[2021-10-19] MEDS ORDERED: MEROPENEM 500 MG VIAL (RESTRICTED TO ID) IVPB ONE (08:54)
[2021-10-19] MEDS ORDERED: DEXTROSE 5%-WATER 100 ML IVPB ONE (08:55)
[2021-10-19] MEDS: MEROPENEM 500 MG in DEXTROSE 5%-WATER 100 ML IVPB SCH (09:47)
[2021-10-19] MEDS: QUEtiapine FUMARATE 25 MG TABLET PO SCH (09:48)
[2021-10-19] MEDS ORDERED: POTASSIUM CHLORIDE ORAL LIQUID 20 MEQ/15 ML PO ONE (13:58)
[2021-10-19] MEDS ORDERED: FUROSEMIDE 40 MG/4 ML INJECTABLE VIAL IVPUSH ONE (13:58)
[2021-10-19] MEDS: POTASSIUM CHLORIDE 10 MEQ in AMINO ACIDS 4.25%/D5W 1,000 ML IV SCH (20:32)
[2021-10-20] MEDS: LORazepam 2 MG/ML SDV VIAL IVPUSH PRN (01:32)
[2021-10-20] MEDS: HEPARIN NA (PORCINE) 5,000 UNITS/ML 1ML VIAL SQ SCH ×3 (05:31→21:42)
[2021-10-20] MEDS: INSULIN SLIDING SCALE (NOVOLOG) 1 VIAL SQ SCH ×4 (06:38→21:44)
[2021-10-20] MEDS ORDERED: MEROPENEM 500 MG VIAL (RESTRICTED TO ID) IVPB ONE (12:59)
[2021-10-20] MEDS ORDERED: DEXTROSE 5%-WATER 100 ML IVPB ONE (13:00)
[2021-10-20] MEDS: MEROPENEM 500 MG in DEXTROSE 5%-WATER 100 ML IVPB SCH (13:03)
[2021-10-20] MEDS: QUEtiapine FUMARATE 25 MG TABLET PO SCH (13:03)
[2021-10-20] MEDS: POTASSIUM CHLORIDE 10 MEQ in AMINO ACIDS 4.25%/D5W 1,000 ML IV SCH (13:23)
[2021-10-20 17:15] LABS: ALBUMIN 1.5 g/dl (3.4-5.0); BLOOD UREA NITROGEN 99.5 mg/dL (7-18); CALCIUM 7.9 mg/dL (8.5-10.1)
[2021-10-20 17:18] LABS: CREATININE 1.9 mg/dL (0.55-1.3)
[2021-10-20 17:20] LABS: BILIRUBIN,TOTAL 0.6 mg/dL (0.2-1); TOT PROT 4.4 g/dl (6.4-8.2)
[2021-10-21] MEDS: POTASSIUM CHLORIDE 10 MEQ in AMINO ACIDS 4.25%/D5W 1,000 ML IV SCH ×2 (05:29→11:09)
[2021-10-21] MEDS: HEPARIN NA (PORCINE) 5,000 UNITS/ML 1ML VIAL SQ SCH ×3 (05:53→22:30)
[2021-10-21] MEDS: INSULIN SLIDING SCALE (NOVOLOG) 1 VIAL SQ SCH ×4 (06:00→22:30)
[2021-10-21] MEDS ORDERED: AMINO ACIDS 4.25%/D5W 1,000 ML IV SCH (09:00)
[2021-10-21] MEDS: QUEtiapine FUMARATE 25 MG TABLET PO SCH ×2 (09:58→10:02)
[2021-10-21 12:45] LABS: BASO % 0.1 % (0-2.0); EOS % 0.5 % (0-4.5); HEMATOCRIT 25.9 % (32.4-45.2); HEMOGLOBIN 8.6 GM/dL (10.7-15.3); LYMPH % 5.6 % (8-40); MCH 27.6 pg (25.7-33.7); MEAN CELL VOLUME 83.7 fl (80-96); MEAN PLT VOLUME 9.5 fl (7.5-11.1); MONO % 5.2 % (3.8-10.2); NEUT % 88.6 % (42.8-82.8); PLATELET COUNT 305 10^3/uL (134-434); RDW 15.3 % (11.6-15.6); WHITE BLOOD COUNT 14.3 K/mm3 (4.0-10.0)
[2021-10-21 13:06] LABS: CHLORIDE 109 mmol/L (98-107); SODIUM 136 mmol/L (136-145)
[2021-10-21 13:09] LABS: ALBUMIN 1.5 g/dl (3.4-5.0); ANION GAP 13 MMOL/L (8-16); CALCIUM 7.7 mg/dL (8.5-10.1); CO2 13 mmol/L (21-32); GLUCOSE,RANDOM 208 mg/dL (74-106)
[2021-10-21 13:12] LABS: SGPT/ALT 22 U/L (13-61)
[2021-10-21 13:13] LABS: BILIRUBIN,TOTAL 0.6 mg/dL (0.2-1); SGOT/AST 54 U/L (15-37); TOT PROT 4.3 g/dl (6.4-8.2)
[2021-10-21 13:15] LABS: ALK PHOS 258 U/L (45-117)
[2021-10-21 13:20] LABS: BLOOD UREA NITROGEN 104.5 mg/dL (7-18)
[2021-10-21] MEDS ORDERED: SODIUM BICARBONATE 8.4% 50 MEQ/50 ML DISP.SYRIN IVPUSH SCH ×2 (13:30)
[2021-10-21] MEDS: SODIUM BICARBONATE 8.4% - 50 MEQ in DEXTROSE 5%-WATER - 50 ML IVPB SCH ×3 (14:34→22:44)
[2021-10-21] MEDS ORDERED: NALOXONE HCL 0.4 MG/ML VIAL IVPUSH PRN (21:55)
[2021-10-22] MEDS: POTASSIUM CHLORIDE 10 MEQ in AMINO ACIDS 4.25%/D5W 1,000 ML IV SCH ×3 (06:29→22:21)
[2021-10-22] MEDS: HEPARIN NA (PORCINE) 5,000 UNITS/ML 1ML VIAL SQ SCH ×2 (06:30→16:49)
[2021-10-22] MEDS: INSULIN SLIDING SCALE (NOVOLOG) 1 VIAL SQ SCH ×4 (06:30→22:22)
[2021-10-22] MEDS: QUEtiapine FUMARATE 25 MG TABLET PO SCH (11:19)
[2021-10-23] MEDS: INSULIN SLIDING SCALE (NOVOLOG) 1 VIAL SQ SCH ×4 (06:24→21:58)
[2021-10-23] MEDS: LORazepam 2 MG/ML SDV VIAL IVPUSH PRN (07:28)
[2021-10-23] MEDS: QUEtiapine FUMARATE 25 MG TABLET PO SCH (09:09)
[2021-10-23 13:45] LABS: CHLORIDE 110 mmol/L (98-107); SODIUM 140 mmol/L (136-145)
[2021-10-23 13:47] LABS: CALCIUM 8.3 mg/dL (8.5-10.1)
[2021-10-23 13:48] LABS: ALBUMIN 1.7 g/dl (3.4-5.0); ANION GAP 12 MMOL/L (8-16); CO2 17 mmol/L (21-32); GLUCOSE,RANDOM 302 mg/dL (74-106); MAGNESIUM 1.6 mg/dL (1.8-2.4)
[2021-10-23 13:51] LABS: CREATININE 1.7 mg/dL (0.55-1.3); PHOSPHOROUS 2.8 mg/dL (2.5-4.9); SGOT/AST 36 U/L (15-37); SGPT/ALT 19 U/L (13-61)
[2021-10-23 13:52] LABS: BILIRUBIN,TOTAL 0.6 mg/dL (0.2-1); TOT PROT 4.8 g/dl (6.4-8.2)
[2021-10-23 13:54] LABS: ALK PHOS 254 U/L (45-117)
[2021-10-23 14:04] LABS: BLOOD UREA NITROGEN 104.9 mg/dL (7-18)
[2021-10-23] MEDS: POTASSIUM CHLORIDE 10 MEQ in AMINO ACIDS 4.25%/D5W 1,000 ML IV SCH ×2 (14:05→18:26)
[2021-10-23] MEDS ORDERED: MAGNESIUM SULF 50% (8.12 MEQ/2 ML-1 GM VIAL) IVPB ONE (16:35)
[2021-10-23] MEDS: SODIUM BICARBONATE 8.4% 50 MEQ/50 ML VIAL IVPUSH SCH ×2 (18:26→22:09)
[2021-10-23] MEDS ORDERED: INSULIN (NOVOLOG) ASPART 100 UNITS/ML 10ML VIAL ONE (22:03)
[2021-10-24] MEDS: LORazepam 2 MG/ML SDV VIAL IVPUSH PRN ×2 (00:47→15:25)
[2021-10-24] MEDS: INSULIN SLIDING SCALE (NOVOLOG) 1 VIAL SQ SCH ×4 (06:11→21:17)
[2021-10-24 09:15] LABS: CALCIUM 8.3 mg/dL (8.5-10.1)
[2021-10-24 09:16] LABS: ALBUMIN 1.6 g/dl (3.4-5.0); BLOOD UREA NITROGEN 96.2 mg/dL (7-18); MAGNESIUM 2.1 mg/dL (1.8-2.4)
[2021-10-24 09:19] LABS: CREATININE 1.5 mg/dL (0.55-1.3)
[2021-10-24 09:20] LABS: TOT PROT 4.5 g/dl (6.4-8.2)
[2021-10-24 09:21] LABS: BILIRUBIN,TOTAL 0.6 mg/dL (0.2-1)
[2021-10-24] MEDS: QUEtiapine FUMARATE 25 MG TABLET PO SCH (10:20)
[2021-10-24 10:58] LABS: BASO % 0.2 % (0-2.0); EOS % 0.9 % (0-4.5); HEMATOCRIT 24.7 % (32.4-45.2); LYMPH % 5.2 % (8-40); MCH 27.4 pg (25.7-33.7); MCHC 32.5 g/dl (32.0-36.0); MEAN CELL VOLUME 84.3 fl (80-96); MEAN PLT VOLUME 8.8 fl (7.5-11.1); MONO % 4.5 % (3.8-10.2); NEUT % 89.2 % (42.8-82.8); PLATELET COUNT 371 10^3/uL (134-434); RBC 2.93 M/mm3 (3.60-5.2); RDW 15.7 % (11.6-15.6); WHITE BLOOD COUNT 15.4 K/mm3 (4.0-10.0)
[2021-10-24] MEDS ORDERED: AMINO ACIDS 4.25%/D5W 1,000 ML IV SCH (14:00)
[2021-10-24] MEDS ORDERED: MEROPENEM 1 GM VIAL (RESTRICTED TO ID) IVPB ONE ×2 (15:10→21:15)
[2021-10-24] MEDS ORDERED: DEXTROSE 5%-WATER 100 ML IVPB ONE ×2 (15:10→21:16)
[2021-10-24] MEDS: MEROPENEM 1 GM in DEXTROSE 5%-WATER 100 ML IVPB SCH ×2 (15:18→21:17)
[2021-10-24] MEDS: POTASSIUM CHLORIDE 10 MEQ in AMINO ACIDS 4.25%/D5W 1,000 ML IV SCH (16:28)
[2021-10-24] MEDS: AMINO ACIDS 4.25%/D5W 1,000 ML IV SCH (16:28)
[2021-10-24] MEDS: MULTIVIT INJ. ADULT COMBO WITH VIT K 1 COMBO 10 ML VIAL IV SCH (16:28)
[2021-10-25] MEDS: AMINO ACIDS 4.25%/D5W 1,000 ML IV SCH ×2 (05:33→18:07)
[2021-10-25] MEDS: INSULIN SLIDING SCALE (NOVOLOG) 1 VIAL SQ SCH ×4 (06:04→21:08)
[2021-10-25] MEDS ORDERED: MEROPENEM 1 GM VIAL (RESTRICTED TO ID) IVPB ONE ×2 (08:57→21:02)
[2021-10-25] MEDS ORDERED: DEXTROSE 5%-WATER 100 ML IVPB ONE ×2 (08:57→21:03)
[2021-10-25] MEDS: MEROPENEM 1 GM in DEXTROSE 5%-WATER 100 ML IVPB SCH ×2 (09:20→21:07)
[2021-10-25] MEDS: QUEtiapine FUMARATE 25 MG TABLET PO SCH (09:20)
[2021-10-25] MEDS: LORazepam 2 MG/ML SDV VIAL IVPUSH PRN (15:41)
[2021-10-25] MEDS: MULTIVIT INJ. ADULT COMBO WITH VIT K 1 COMBO 10 ML VIAL IV SCH (18:07)
[2021-10-25] MEDS ORDERED: ACETAMINOPHEN 1000 MG/100 ML BAG IVPB PRN (23:05)
[2021-10-26] MEDS: AMINO ACIDS 4.25%/D5W 1,000 ML IV SCH ×2 (06:16→14:26)
[2021-10-26] MEDS: INSULIN SLIDING SCALE (NOVOLOG) 1 VIAL SQ SCH ×4 (06:19→21:44)
[2021-10-26] MEDS ORDERED: MEROPENEM 1 GM VIAL (RESTRICTED TO ID) IVPB ONE ×2 (10:54→21:13)
[2021-10-26] MEDS ORDERED: DEXTROSE 5%-WATER 100 ML IVPB ONE ×2 (10:54→21:14)
[2021-10-26] MEDS: MEROPENEM 1 GM in DEXTROSE 5%-WATER 100 ML IVPB SCH ×2 (11:13→21:41)
[2021-10-26] MEDS: QUEtiapine FUMARATE 25 MG TABLET PO SCH (11:13)
[2021-10-26] MEDS: MULTIVIT INJ. ADULT COMBO WITH VIT K 1 COMBO 10 ML VIAL IV SCH (14:27)
[2021-10-26] MEDS: LORazepam 2 MG/ML SDV VIAL IVPUSH PRN (14:28)
[2021-10-26] MEDS ORDERED: LORazepam 2 MG/ML SDV VIAL IVPUSH ONE (23:46)
[2021-10-27] MEDS: AMINO ACIDS 4.25%/D5W 1,000 ML IV SCH (02:19)
[2021-10-27] MEDS: INSULIN SLIDING SCALE (NOVOLOG) 1 VIAL SQ SCH ×4 (06:24→22:09)
[2021-10-27] MEDS ORDERED: DEXTROSE 5%-WATER 100 ML IVPB ONE ×2 (10:09→21:27)
[2021-10-27] MEDS ORDERED: MEROPENEM 1 GM VIAL (RESTRICTED TO ID) IVPB ONE ×2 (10:09→21:27)
[2021-10-27 10:10] LABS: CHLORIDE 107 mmol/L (98-107); SODIUM 135 mmol/L (136-145)
[2021-10-27 10:15] LABS: ALBUMIN 1.5 g/dl (3.4-5.0); ANION GAP 11 MMOL/L (8-16); CO2 18 mmol/L (21-32); GLUCOSE,RANDOM 197 mg/dL (74-106); MAGNESIUM 1.6 mg/dL (1.8-2.4)
[2021-10-27 10:17] LABS: SGPT/ALT 22 U/L (13-61)
[2021-10-27 10:18] LABS: CREATININE 1.3 mg/dL (0.55-1.3); SGOT/AST 40 U/L (15-37)
[2021-10-27] MEDS: MEROPENEM 1 GM in DEXTROSE 5%-WATER 100 ML IVPB SCH ×2 (10:18→22:10)
[2021-10-27 10:19] LABS: BILIRUBIN,TOTAL 0.6 mg/dL (0.2-1); TOT PROT 4.5 g/dl (6.4-8.2)
[2021-10-27] MEDS: QUEtiapine FUMARATE 25 MG TABLET PO SCH (10:19)
[2021-10-27] MEDS: LORazepam 2 MG/ML SDV VIAL IVPUSH PRN (10:19)
[2021-10-27 10:24] LABS: ALK PHOS 347 U/L (45-117); PHOSPHOROUS 0.9 mg/dL (2.5-4.9)
[2021-10-27] MEDS ORDERED: POTASSIUM CHLORIDE 30 MEQ in AMINO ACIDS 4.25%/D5W 1,000 ML IV SCH (13:00)
[2021-10-27] MEDS ORDERED: MAGNESIUM SULF 50% (8.12 MEQ/2 ML-1 GM VIAL) IVPB ONE (14:56)
[2021-10-27] MEDS ORDERED: POTASSIUM PHOSPHATE 30 MM in SODIUM CHLORIDE 500 ML IVPB ONE (15:10)
[2021-10-27] MEDS: POTASSIUM CHLORIDE 40 MEQ in AMINO ACIDS 4.25%/D5W 1,000 ML IV SCH (17:21)
[2021-10-27] MEDS: MULTIVIT INJ. ADULT COMBO WITH VIT K 1 COMBO 10 ML VIAL IV SCH (17:27)
[2021-10-27] MEDS ORDERED: INSULIN (NOVOLOG) ASPART 100 UNITS/ML 10ML VIAL ONE (22:07)
[2021-10-28] MEDS: LORazepam 2 MG/ML SDV VIAL IVPUSH PRN ×2 (00:27→12:16)
[2021-10-28] MEDS ORDERED: ACETAMINOPHEN 1000 MG/100 ML BAG IVPB ONE (04:29)
[2021-10-28] MEDS: POTASSIUM CHLORIDE 40 MEQ in AMINO ACIDS 4.25%/D5W 1,000 ML IV SCH ×3 (04:36→16:32)
[2021-10-28] MEDS: INSULIN SLIDING SCALE (NOVOLOG) 1 VIAL SQ SCH ×4 (06:02→21:42)
[2021-10-28 07:32] LABS: BASO % 0.3 % (0-2.0); CHLORIDE 108 mmol/L (98-107); EOS % 0.8 % (0-4.5); HEMATOCRIT 21.8 % (32.4-45.2); MCH 27.2 pg (25.7-33.7); MCHC 31.6 g/dl (32.0-36.0); MEAN CELL VOLUME 86.1 fl (80-96); MEAN PLT VOLUME 8.6 fl (7.5-11.1); MONO % 4.3 % (3.8-10.2); NEUT % 87.6 % (42.8-82.8); PLATELET COUNT 234 10^3/uL (134-434); RBC 2.53 M/mm3 (3.60-5.2); RDW 16.1 % (11.6-15.6); SODIUM 135 mmol/L (136-145); WHITE BLOOD COUNT 14.1 K/mm3 (4.0-10.0)
[2021-10-28 07:36] LABS: HEMOGLOBIN 6.9 GM/dL (10.7-15.3)
[2021-10-28 07:38] LABS: ALBUMIN 1.5 g/dl (3.4-5.0); ANION GAP 13 MMOL/L (8-16); CALCIUM 7.5 mg/dL (8.5-10.1); CO2 15 mmol/L (21-32); GLUCOSE,RANDOM 249 mg/dL (74-106)
[2021-10-28 07:40] LABS: PHOSPHOROUS 3.3 mg/dL (2.5-4.9); SGPT/ALT 25 U/L (13-61)
[2021-10-28 07:41] LABS: BILIRUBIN,TOTAL 0.6 mg/dL (0.2-1); CREATININE 1.2 mg/dL (0.55-1.3); SGOT/AST 51 U/L (15-37); TOT PROT 4.4 g/dl (6.4-8.2)
[2021-10-28 07:42] LABS: ALK PHOS 342 U/L (45-117)
[2021-10-28] MEDS ORDERED: DEXTROSE 5%-WATER 100 ML IVPB ONE ×2 (08:31→21:26)
[2021-10-28] MEDS ORDERED: MEROPENEM 1 GM VIAL (RESTRICTED TO ID) IVPB ONE ×2 (08:31→21:26)
[2021-10-28] MEDS: PANTOPRAZOLE SODIUM 40 MG VIAL IVPUSH SCH (09:45)
[2021-10-28] MEDS: MEROPENEM 1 GM in DEXTROSE 5%-WATER 100 ML IVPB SCH ×2 (09:45→21:42)
[2021-10-28] MEDS: QUEtiapine FUMARATE 25 MG TABLET PO SCH (09:45)
[2021-10-28] MEDS: MULTIVIT INJ. ADULT COMBO WITH VIT K 1 COMBO 10 ML VIAL IV SCH ×2 (12:15→14:42)
[2021-10-28] MEDS ORDERED: FUROSEMIDE 40 MG/4 ML INJECTABLE VIAL IVPUSH ONE ×2 (12:39→15:15)
[2021-10-29] MEDS: INSULIN SLIDING SCALE (NOVOLOG) 1 VIAL SQ SCH ×4 (06:11→21:58)
[2021-10-29] MEDS: POTASSIUM CHLORIDE 40 MEQ in AMINO ACIDS 4.25%/D5W 1,000 ML IV SCH (07:29)
[2021-10-29] MEDS ORDERED: DEXTROSE 5%-WATER 100 ML IVPB ONE ×2 (08:32→21:45)
[2021-10-29] MEDS ORDERED: MEROPENEM 1 GM VIAL (RESTRICTED TO ID) IVPB ONE ×2 (08:32→21:45)
[2021-10-29] MEDS: QUEtiapine FUMARATE 25 MG TABLET PO SCH ×2 (09:54→21:59)
[2021-10-29] MEDS: MEROPENEM 1 GM in DEXTROSE 5%-WATER 100 ML IVPB SCH ×2 (09:54→21:51)
[2021-10-29] MEDS: PANTOPRAZOLE SODIUM 40 MG VIAL IVPUSH SCH (09:54)
[2021-10-29 09:55] LABS: HEMATOCRIT 28.7 % (32.4-45.2); HEMOGLOBIN 9.4 GM/dL (10.7-15.3); MCH 28.1 pg (25.7-33.7); MCHC 32.7 g/dl (32.0-36.0); MEAN CELL VOLUME 85.8 fl (80-96); NEUT % 87.1 % (42.8-82.8); PLATELET COUNT 280 10^3/uL (134-434); RBC 3.34 M/mm3 (3.60-5.2); RDW 15.4 % (11.6-15.6); WHITE BLOOD COUNT 15.4 K/mm3 (4.0-10.0)
[2021-10-29 09:56] LABS: BASO % 0.3 % (0-2.0); EOS % 1.2 % (0-4.5); LYMPH % 7.8 % (8-40); MONO % 3.6 % (3.8-10.2)
[2021-10-29 10:14] LABS: CHLORIDE 107 mmol/L (98-107); SODIUM 137 mmol/L (136-145)
[2021-10-29 10:16] LABS: ALBUMIN 1.6 g/dl (3.4-5.0); CALCIUM 7.9 mg/dL (8.5-10.1); CO2 16 mmol/L (21-32)
[2021-10-29 10:17] LABS: GLUCOSE,RANDOM 300 mg/dL (74-106)
[2021-10-29 10:19] LABS: CREATININE 1.4 mg/dL (0.55-1.3); PHOSPHOROUS 2.5 mg/dL (2.5-4.9); SGPT/ALT 25 U/L (13-61)
[2021-10-29 10:20] LABS: SGOT/AST 42 U/L (15-37)
[2021-10-29 10:21] LABS: BILIRUBIN,TOTAL 0.8 mg/dL (0.2-1); TOT PROT 4.7 g/dl (6.4-8.2)
[2021-10-29 10:22] LABS: ALK PHOS 353 U/L (45-117); ANION GAP 14 MMOL/L (8-16); BLOOD UREA NITROGEN 109.4 mg/dL (7-18)
[2021-10-29] MEDS ORDERED: FUROSEMIDE 40 MG/4 ML INJECTABLE VIAL IVPUSH ONE (13:03)
[2021-10-29] MEDS ORDERED: SODIUM BICARBONATE 8.4% 50 MEQ/50 ML DISP.SYRIN IVPUSH ONE (13:03)
[2021-10-29] MEDS: THIAMINE HCL 200 MG/2 ML VIAL IVPB SCH (14:17)
[2021-10-29] MEDS: POTASSIUM CHLORIDE 10 MEQ in AMINO ACIDS 4.25%/D5W 1,000 ML IV SCH (14:18)
[2021-10-29] MEDS: MULTIVIT INJ. ADULT COMBO WITH VIT K 1 COMBO 10 ML VIAL IV SCH (14:20)
[2021-10-29 14:40] LABS: INR 1.11 (0.83-1.09); PROTHROMBIN TIME (PATIENT) 12.8 SEC (9.7-13.0)
[2021-10-29] MEDS ORDERED: SODIUM BICARBONATE 8.4% - 50 MEQ in DEXTROSE 5%-WATER - 50 ML IVPB ONE (15:00)
[2021-10-29] MEDS: LORazepam 2 MG/ML SDV VIAL IVPUSH PRN (15:25)
[2021-10-30] MEDS: POTASSIUM CHLORIDE 10 MEQ in AMINO ACIDS 4.25%/D5W 1,000 ML IV SCH ×2 (01:17→12:19)
[2021-10-30] MEDS: INSULIN SLIDING SCALE (NOVOLOG) 1 VIAL SQ SCH ×4 (06:01→23:18)
[2021-10-30 08:59] LABS: ALBUMIN 1.6 g/dl (3.4-5.0); BLOOD UREA NITROGEN 97.9 mg/dL (7-18); MAGNESIUM 1.9 mg/dL (1.8-2.4)
[2021-10-30 09:02] LABS: CREATININE 1.3 mg/dL (0.55-1.3)
[2021-10-30 09:03] LABS: TOT PROT 4.7 g/dl (6.4-8.2)
[2021-10-30] MEDS ORDERED: MEROPENEM 1 GM VIAL (RESTRICTED TO ID) IVPB ONE (09:11)
[2021-10-30] MEDS ORDERED: DEXTROSE 5%-WATER 100 ML IVPB ONE (09:12)
[2021-10-30] MEDS: THIAMINE HCL 200 MG/2 ML VIAL IVPB SCH (09:15)
[2021-10-30] MEDS: MEROPENEM 1 GM in DEXTROSE 5%-WATER 100 ML IVPB SCH (09:16)
[2021-10-30] MEDS: PANTOPRAZOLE SODIUM 40 MG VIAL IVPUSH SCH (09:16)
[2021-10-30] MEDS: QUEtiapine FUMARATE 25 MG TABLET PO SCH ×2 (09:17→22:54)
[2021-10-30] MEDS: BACITRACIN 15 GM TUBE TOPICAL OINTMENT TP SCH (09:17)
[2021-10-30] MEDS: LORazepam 2 MG/ML SDV VIAL IVPUSH PRN (09:36)
[2021-10-30] MEDS ORDERED: GlUCAGON HUMAN RECOMBINANT 1 MG/VIAL IVPUSH ONE (10:30)
[2021-10-30] MEDS: MULTIVIT INJ. ADULT COMBO WITH VIT K 1 COMBO 10 ML VIAL IV SCH (15:16)
[2021-10-30] MEDS ORDERED: INSULIN (NOVOLOG) ASPART 100 UNITS/ML 10ML VIAL ONE (23:03)
[2021-10-31] MEDS: POTASSIUM CHLORIDE 10 MEQ in AMINO ACIDS 4.25%/D5W 1,000 ML IV SCH ×3 (06:14→16:00)
[2021-10-31] MEDS: INSULIN SLIDING SCALE (NOVOLOG) 1 VIAL SQ SCH ×4 (07:58→23:10)
[2021-10-31 08:28] LABS: BASO % 0.2 % (0-2.0); EOS % 2.5 % (0-4.5); HEMATOCRIT 28.5 % (32.4-45.2); HEMOGLOBIN 9.4 GM/dL (10.7-15.3); LYMPH % 8.6 % (8-40); MCH 28.4 pg (25.7-33.7); MEAN PLT VOLUME 8.4 fl (7.5-11.1); MONO % 6.5 % (3.8-10.2); NEUT % 82.2 % (42.8-82.8); PLATELET COUNT 240 10^3/uL (134-434); RBC 3.32 M/mm3 (3.60-5.2); RDW 16.5 % (11.6-15.6); WHITE BLOOD COUNT 14.3 K/mm3 (4.0-10.0)
[2021-10-31 09:02] LABS: CALCIUM 8.1 mg/dL (8.5-10.1)
[2021-10-31 09:03] LABS: ALBUMIN 1.6 g/dl (3.4-5.0); BLOOD UREA NITROGEN 90.2 mg/dL (7-18)
[2021-10-31 09:08] LABS: BILIRUBIN,TOTAL 0.9 mg/dL (0.2-1); TOT PROT 4.7 g/dl (6.4-8.2)
[2021-10-31 09:09] LABS: CREATININE 1.2 mg/dL (0.55-1.3)
[2021-10-31] MEDS: PANTOPRAZOLE SODIUM 40 MG VIAL IVPUSH SCH (10:15)
[2021-10-31] MEDS: BACITRACIN 15 GM TUBE TOPICAL OINTMENT TP SCH (10:15)
[2021-10-31] MEDS: THIAMINE HCL 200 MG/2 ML VIAL IVPB SCH (10:16)
[2021-10-31] MEDS: QUEtiapine FUMARATE 25 MG TABLET PO SCH ×2 (10:21→23:10)
[2021-10-31] MEDS: MULTIVIT INJ. ADULT COMBO WITH VIT K 1 COMBO 10 ML VIAL IV SCH (16:00)
[2021-11-01] MEDS: POTASSIUM CHLORIDE 10 MEQ in AMINO ACIDS 4.25%/D5W 1,000 ML IV SCH ×2 (01:33→13:25)
[2021-11-01] MEDS: INSULIN SLIDING SCALE (NOVOLOG) 1 VIAL SQ SCH ×4 (06:26→23:14)
[2021-11-01 07:51] LABS: BASO % 0.3 % (0-2.0); EOS % 1.6 % (0-4.5); HEMATOCRIT 28.1 % (32.4-45.2); HEMOGLOBIN 9.1 GM/dL (10.7-15.3); LYMPH % 8.7 % (8-40); MCH 28.6 pg (25.7-33.7); MCHC 32.5 g/dl (32.0-36.0); MEAN CELL VOLUME 87.8 fl (80-96); MEAN PLT VOLUME 8.5 fl (7.5-11.1); MONO % 5.3 % (3.8-10.2); NEUT % 84.1 % (42.8-82.8); PLATELET COUNT 218 10^3/uL (134-434); RDW 17.1 % (11.6-15.6); WHITE BLOOD COUNT 12.3 K/mm3 (4.0-10.0)
[2021-11-01 08:18] LABS: CALCIUM 7.8 mg/dL (8.5-10.1)
[2021-11-01 08:19] LABS: BLOOD UREA NITROGEN 88.2 mg/dL (7-18); MAGNESIUM 1.5 mg/dL (1.8-2.4)
[2021-11-01 08:22] LABS: CREATININE 1.3 mg/dL (0.55-1.3)
[2021-11-01] MEDS: LORazepam 2 MG/ML SDV VIAL IVPUSH PRN ×2 (08:53→23:16)
[2021-11-01] MEDS ORDERED: MAGNESIUM 1GM/D5W - 1 GM/100 ML IVPB IVPB ONE (10:00)
[2021-11-01] MEDS: PANTOPRAZOLE SODIUM 40 MG VIAL IVPUSH SCH (11:08)
[2021-11-01] MEDS: BACITRACIN 15 GM TUBE TOPICAL OINTMENT TP SCH (11:08)
[2021-11-01] MEDS: QUEtiapine FUMARATE 25 MG TABLET PO SCH ×2 (11:09→22:54)
[2021-11-01] MEDS: THIAMINE HCL 200 MG/2 ML VIAL IVPB SCH (11:09)
[2021-11-01] MEDS: MULTIVIT INJ. ADULT COMBO WITH VIT K 1 COMBO 10 ML VIAL IV SCH (13:25)
[2021-11-01] MEDS: BANATROL PLUS POWDER PACKET GT SCH ×2 (13:25→22:54)
[2021-11-02] MEDS: POTASSIUM CHLORIDE 10 MEQ in AMINO ACIDS 4.25%/D5W 1,000 ML IV SCH ×3 (02:12→12:36)
[2021-11-02] MEDS: BANATROL PLUS POWDER PACKET GT SCH ×3 (05:41→23:13)
[2021-11-02] MEDS: INSULIN SLIDING SCALE (NOVOLOG) 1 VIAL SQ SCH ×4 (06:06→23:13)
[2021-11-02] MEDS: MULTIVIT INJ. ADULT COMBO WITH VIT K 1 COMBO 10 ML VIAL IV SCH ×2 (08:25→13:04)
[2021-11-02 09:05] LABS: BASO % 0.4 % (0-2.0); EOS % 1.1 % (0-4.5); HEMATOCRIT 26.2 % (32.4-45.2); HEMOGLOBIN 8.5 GM/dL (10.7-15.3); LYMPH % 6.3 % (8-40); MCH 28.5 pg (25.7-33.7); MCHC 32.6 g/dl (32.0-36.0); MEAN CELL VOLUME 87.4 fl (80-96); MEAN PLT VOLUME 8.8 fl (7.5-11.1); NEUT % 87.2 % (42.8-82.8); PLATELET COUNT 212 10^3/uL (134-434); RDW 17.2 % (11.6-15.6); WHITE BLOOD COUNT 13.1 K/mm3 (4.0-10.0)
[2021-11-02 09:21] LABS: BLOOD UREA NITROGEN 95.1 mg/dL (7-18); CALCIUM 7.9 mg/dL (8.5-10.1)
[2021-11-02 09:25] LABS: CREATININE 1.3 mg/dL (0.55-1.3)
[2021-11-02] MEDS: BACITRACIN 15 GM TUBE TOPICAL OINTMENT TP SCH (11:14)
[2021-11-02] MEDS: PANTOPRAZOLE SODIUM 40 MG VIAL IVPUSH SCH (11:14)
[2021-11-02] MEDS: THIAMINE HCL 200 MG/2 ML VIAL IVPB SCH (11:14)
[2021-11-02] MEDS: QUEtiapine FUMARATE 25 MG TABLET PO SCH ×2 (11:36→23:13)
[2021-11-02] MEDS: LORazepam 2 MG/ML SDV VIAL IVPUSH PRN (11:43)
[2021-11-02 12:11] LABS: BASO % 0.3 % (0-2.0); EOS % 1.2 % (0-4.5); HEMATOCRIT 27.5 % (32.4-45.2); HEMOGLOBIN 9.1 GM/dL (10.7-15.3); LYMPH % 7.9 % (8-40); MCH 28.8 pg (25.7-33.7); MEAN CELL VOLUME 87.4 fl (80-96); MEAN PLT VOLUME 9.3 fl (7.5-11.1); MONO % 6.3 % (3.8-10.2); NEUT % 84.3 % (42.8-82.8); PLATELET COUNT 232 10^3/uL (134-434); RBC 3.15 M/mm3 (3.60-5.2); RDW 17.5 % (11.6-15.6); WHITE BLOOD COUNT 15.8 K/mm3 (4.0-10.0)
[2021-11-02 12:29] LABS: CALCIUM 8.1 mg/dL (8.5-10.1)
[2021-11-02 12:34] LABS: CREATININE 1.3 mg/dL (0.55-1.3)
[2021-11-03] MEDS: POTASSIUM CHLORIDE 10 MEQ in AMINO ACIDS 4.25%/D5W 1,000 ML IV SCH (00:56)
[2021-11-03] MEDS: BANATROL PLUS POWDER PACKET GT SCH ×3 (05:59→22:07)
[2021-11-03] MEDS: INSULIN SLIDING SCALE (NOVOLOG) 1 VIAL SQ SCH ×4 (06:16→22:07)
[2021-11-03 07:56] LABS: CALCIUM 8.1 mg/dL (8.5-10.1)
[2021-11-03 07:57] LABS: ALBUMIN 1.6 g/dl (3.4-5.0); BLOOD UREA NITROGEN 93.3 mg/dL (7-18)
[2021-11-03 08:00] LABS: CREATININE 1.3 mg/dL (0.55-1.3)
[2021-11-03 08:02] LABS: TOT PROT 4.7 g/dl (6.4-8.2)
[2021-11-03 09:23] LABS: BASO % 0.3 % (0-2.0); EOS % 1.5 % (0-4.5); LYMPH % 7.3 % (8-40); MCH 28.2 pg (25.7-33.7); MCHC 32.2 g/dl (32.0-36.0); MEAN CELL VOLUME 87.7 fl (80-96); MEAN PLT VOLUME 8.9 fl (7.5-11.1); MONO % 5.3 % (3.8-10.2); NEUT % 85.6 % (42.8-82.8); PLATELET COUNT 231 10^3/uL (134-434); RBC 3.19 M/mm3 (3.60-5.2); RDW 17.6 % (11.6-15.6); WHITE BLOOD COUNT 14.7 K/mm3 (4.0-10.0)
[2021-11-03] MEDS: THIAMINE HCL 200 MG/2 ML VIAL IVPB SCH (09:53)
[2021-11-03] MEDS: PANTOPRAZOLE SODIUM 40 MG VIAL IVPUSH SCH (09:53)
[2021-11-03] MEDS: BACITRACIN 15 GM TUBE TOPICAL OINTMENT TP SCH (09:53)
[2021-11-03] MEDS: LORazepam 2 MG/ML SDV VIAL IVPUSH PRN ×3 (09:53→23:36)
[2021-11-03] MEDS: QUEtiapine FUMARATE 25 MG TABLET PO SCH ×2 (09:53→22:07)
[2021-11-03] MEDS ORDERED: FUROSEMIDE 40 MG/5 ML UNIT-DOSE CUP PEG ONE (15:02)
[2021-11-03] MEDS: COLLAGENASE CLOSTRIDIUM HIST. 30 GRAMS TUBE TP SCH (16:49)
[2021-11-03] MEDS: ASCORBIC ACID 250 MG TABLET (FP) PO SCH (22:07)
[2021-11-04] MEDS: BANATROL PLUS POWDER PACKET GT SCH ×3 (05:57→21:52)
[2021-11-04] MEDS: INSULIN SLIDING SCALE (NOVOLOG) 1 VIAL SQ SCH ×4 (06:06→21:52)
[2021-11-04 07:35] LABS: BASO % 0.5 % (0-2.0); EOS % 1.8 % (0-4.5); HEMATOCRIT 25.8 % (32.4-45.2); HEMOGLOBIN 8.6 GM/dL (10.7-15.3); LYMPH % 7.3 % (8-40); MCH 28.9 pg (25.7-33.7); MCHC 33.4 g/dl (32.0-36.0); MEAN CELL VOLUME 86.5 fl (80-96); MONO % 6.2 % (3.8-10.2); NEUT % 84.2 % (42.8-82.8); PLATELET COUNT 206 10^3/uL (134-434); RBC 2.99 M/mm3 (3.60-5.2); RDW 17.6 % (11.6-15.6); WHITE BLOOD COUNT 13.5 K/mm3 (4.0-10.0)
[2021-11-04 08:04] LABS: CALCIUM 8.1 mg/dL (8.5-10.1)
[2021-11-04 08:05] LABS: ALBUMIN 1.6 g/dl (3.4-5.0); BLOOD UREA NITROGEN 87.5 mg/dL (7-18)
[2021-11-04 08:07] LABS: CREATININE 1.4 mg/dL (0.55-1.3)
[2021-11-04 08:08] LABS: BILIRUBIN,TOTAL 1.1 mg/dL (0.2-1); TOT PROT 4.8 g/dl (6.4-8.2)
[2021-11-04] MEDS: COLLAGENASE CLOSTRIDIUM HIST. 30 GRAMS TUBE TP SCH (10:10)
[2021-11-04] MEDS: PANTOPRAZOLE SODIUM 40 MG VIAL IVPUSH SCH (10:10)
[2021-11-04] MEDS: LORazepam 2 MG/ML SDV VIAL IVPUSH PRN (10:11)
[2021-11-04] MEDS: AMINO ACIDS/PROTEIN HYDROLYS 30 ML LIQUID.PKT PO SCH (10:11)
[2021-11-04] MEDS: QUEtiapine FUMARATE 25 MG TABLET PO SCH ×2 (10:11→21:51)
[2021-11-04] MEDS: ZINC SULFATE 220 MG CAPSULE (FP) PO SCH (10:11)
[2021-11-04] MEDS: ASCORBIC ACID 250 MG TABLET (FP) PO SCH ×2 (10:12→21:52)
[2021-11-04] MEDS: BACITRACIN 15 GM TUBE TOPICAL OINTMENT TP SCH (10:56)
[2021-11-04] MEDS: SODIUM BICARBONATE 650 MG TABLET PO SCH (13:15)
[2021-11-04] MEDS ORDERED: SODIUM CHLORIDE 1,000 ML IV SCH (16:30)
[2021-11-04 16:46] LABS: ALLENS TEST POSITIVE; ARTERIAL BLOOD GAS BASE EXCESS -9.5 mmol/L (-2-2); ARTERIAL BLOOD GAS PO2 112.4 mmHg (80-100); ARTERIAL BLOOD GAS pH 7.347 (7.350-7.450)
[2021-11-04 20:03] LABS: BASO % 0.2 % (0-2.0); EOS % 0.5 % (0-4.5); HEMATOCRIT 26.2 % (32.4-45.2); HEMOGLOBIN 8.5 GM/dL (10.7-15.3); LYMPH % 4.4 % (8-40); MCH 28.2 pg (25.7-33.7); MCHC 32.4 g/dl (32.0-36.0); MEAN CELL VOLUME 87.3 fl (80-96); MEAN PLT VOLUME 8.7 fl (7.5-11.1); MONO % 4.9 % (3.8-10.2); PLATELET COUNT 210 10^3/uL (134-434); RBC 3.01 M/mm3 (3.60-5.2); RDW 17.9 % (11.6-15.6); WHITE BLOOD COUNT 12.3 K/mm3 (4.0-10.0)
[2021-11-04 20:17] LABS: INR 1.38 (0.83-1.09); PROTHROMBIN TIME (PATIENT) 15.9 SEC (9.7-13.0)
[2021-11-04 20:19] LABS: ACTIVATED PTT 32.4 SECONDS (25.2-36.5)
[2021-11-04 20:31] LABS: CALCIUM 7.9 mg/dL (8.5-10.1)
[2021-11-04 20:32] LABS: ALBUMIN 1.7 g/dl (3.4-5.0); BLOOD UREA NITROGEN 95.4 mg/dL (7-18)
[2021-11-04 20:35] LABS: CREATININE 1.5 mg/dL (0.55-1.3)
[2021-11-04 20:36] LABS: BILIRUBIN,TOTAL 1.2 mg/dL (0.2-1)
[2021-11-05] MEDS: BANATROL PLUS POWDER PACKET GT SCH ×3 (05:46→22:27)
[2021-11-05] MEDS: INSULIN SLIDING SCALE (NOVOLOG) 1 VIAL SQ SCH ×4 (09:23→22:28)
[2021-11-05] MEDS: QUEtiapine FUMARATE 25 MG TABLET PO SCH ×4 (09:24→22:27)
[2021-11-05] MEDS: BACITRACIN 15 GM TUBE TOPICAL OINTMENT TP SCH (09:24)
[2021-11-05] MEDS: ZINC SULFATE 220 MG CAPSULE (FP) PO SCH ×2 (09:24→10:04)
[2021-11-05] MEDS: PANTOPRAZOLE SODIUM 40 MG VIAL IVPUSH SCH (09:24)
[2021-11-05] MEDS: AMINO ACIDS/PROTEIN HYDROLYS 30 ML LIQUID.PKT PO SCH ×2 (09:24→10:03)
[2021-11-05] MEDS: COLLAGENASE CLOSTRIDIUM HIST. 30 GRAMS TUBE TP SCH (09:25)
[2021-11-05] MEDS: ASCORBIC ACID 250 MG TABLET (FP) PO SCH ×4 (09:25→22:28)
[2021-11-05] MEDS: SODIUM BICARBONATE 650 MG TABLET PO SCH ×4 (09:26→22:27)
[2021-11-05] MEDS: LORazepam 2 MG/ML SDV VIAL IVPUSH PRN (09:27)
[2021-11-05 09:30] LABS: BASO % 0.2 % (0-2.0); HEMATOCRIT 25.6 % (32.4-45.2); HEMOGLOBIN 8.2 GM/dL (10.7-15.3); LYMPH % 5.2 % (8-40); MCH 28.2 pg (25.7-33.7); MCHC 32.2 g/dl (32.0-36.0); MEAN CELL VOLUME 87.5 fl (80-96); MEAN PLT VOLUME 8.6 fl (7.5-11.1); MONO % 5.2 % (3.8-10.2); NEUT % 88.4 % (42.8-82.8); PLATELET COUNT 239 10^3/uL (134-434); RBC 2.92 M/mm3 (3.60-5.2); RDW 17.7 % (11.6-15.6); WHITE BLOOD COUNT 14.9 K/mm3 (4.0-10.0)
[2021-11-05 09:54] LABS: BLOOD UREA NITROGEN 94.8 mg/dL (7-18); CALCIUM 8.1 mg/dL (8.5-10.1)
[2021-11-05 09:58] LABS: CREATININE 1.4 mg/dL (0.55-1.3)
[2021-11-05] MEDS: POTASSIUM CHLORIDE 20 MEQ in AMINO ACIDS 4.25%/D5W 1,000 ML IV SCH (14:03)
[2021-11-05 14:46] LABS: EPI CELLS 11 /uL (0-25.1); HYALINE CASTS 7 /uL (0-3.1); URINE APPEARANCE CLOUDY; URINE BILIRUBIN NEGATIVE (NEGATIVE); URINE COLOR YELLOW; URINE GLUCOSE (UA) NEGATIVE (NEGATIVE); URINE KETONE TRACE (NEGATIVE); URINE LEUK ESTERASE 3+ (NEGATIVE); URINE NITRITE POSITIVE (NEGATIVE); URINE PROTEIN 2+ (NEGATIVE); URINE UROBILINOGEN 0.2 mg/dL (0.2-1.0); URINE WBC 868 /uL (0-25.8)
[2021-11-05 15:14] LABS: URINE BACTERIA 765.9 /uL (0-1359); URINE CRYSTALS NONE SEEN /hpf; URINE RBC 24.8 /uL (0-23.9); YEAST MANY (NEGATIVE)
[2021-11-06] MEDS: POTASSIUM CHLORIDE 20 MEQ in AMINO ACIDS 4.25%/D5W 1,000 ML IV SCH ×2 (03:33→18:58)
[2021-11-06] MEDS: BANATROL PLUS POWDER PACKET GT SCH ×3 (06:07→22:14)
[2021-11-06] MEDS: INSULIN SLIDING SCALE (NOVOLOG) 1 VIAL SQ SCH ×4 (06:07→22:12)
[2021-11-06] MEDS: QUEtiapine FUMARATE 25 MG TABLET PO SCH ×2 (09:36→22:14)
[2021-11-06] MEDS: SODIUM BICARBONATE 650 MG TABLET PO SCH ×2 (09:36→22:14)
[2021-11-06] MEDS: AMINO ACIDS/PROTEIN HYDROLYS 30 ML LIQUID.PKT PO SCH (09:36)
[2021-11-06] MEDS: PANTOPRAZOLE SODIUM 40 MG VIAL IVPUSH SCH (09:37)
[2021-11-06] MEDS: COLLAGENASE CLOSTRIDIUM HIST. 30 GRAMS TUBE TP SCH (09:37)
[2021-11-06] MEDS: ZINC SULFATE 220 MG CAPSULE (FP) PO SCH (09:37)
[2021-11-06] MEDS: BACITRACIN 15 GM TUBE TOPICAL OINTMENT TP SCH (09:38)
[2021-11-06] MEDS: ASCORBIC ACID 250 MG TABLET (FP) PO SCH ×2 (09:39→22:17)
[2021-11-06 11:37] LABS: BASO % 0.4 % (0-2.0); EOS % 0.9 % (0-4.5); HEMATOCRIT 24.4 % (32.4-45.2); HEMOGLOBIN 7.8 GM/dL (10.7-15.3); LYMPH % 5.3 % (8-40); MCH 28.1 pg (25.7-33.7); MCHC 31.8 g/dl (32.0-36.0); MEAN CELL VOLUME 88.5 fl (80-96); MEAN PLT VOLUME 8.2 fl (7.5-11.1); MONO % 5.9 % (3.8-10.2); NEUT % 87.5 % (42.8-82.8); PLATELET COUNT 221 10^3/uL (134-434); RBC 2.75 M/mm3 (3.60-5.2); RDW 17.3 % (11.6-15.6); WHITE BLOOD COUNT 13.4 K/mm3 (4.0-10.0)
[2021-11-06] MEDS ORDERED: DEXTROSE 5%-WATER - 50 ML IVPB ONE ×2 (11:47→21:31)
[2021-11-06] MEDS ORDERED: AZTREONAM 1 GM VIAL (RESTRICTED TO ID) ONE ×2 (11:47→21:31)
[2021-11-06] MEDS: AZTREONAM 1 GM in DEXTROSE 5%-WATER - 50 ML IVPB SCH ×2 (11:52→22:55)
[2021-11-06] MEDS: LORazepam 2 MG/ML SDV VIAL IVPUSH PRN (11:52)
[2021-11-06 12:00] LABS: CALCIUM 7.9 mg/dL (8.5-10.1)
[2021-11-06 12:04] LABS: CREATININE 1.6 mg/dL (0.55-1.3)
[2021-11-06] MEDS ORDERED: SODIUM BICARBONATE 8.4% 50 MEQ/50 ML DISP.SYRIN IVPUSH ONE (14:09)
[2021-11-06] MEDS ORDERED: SODIUM BICARBONATE 8.4% - 50 MEQ in DEXTROSE 5%-WATER - 50 ML IVPB ONE ×2 (15:00→17:15)
[2021-11-07] MEDS: INSULIN SLIDING SCALE (NOVOLOG) 1 VIAL SQ SCH ×4 (06:04→21:47)
[2021-11-07] MEDS: BANATROL PLUS POWDER PACKET GT SCH ×3 (06:07→22:07)
[2021-11-07] MEDS ORDERED: ACETAMINOPHEN 1000 MG/100 ML BAG IVPB ONE (07:02)
[2021-11-07] MEDS ORDERED: AZTREONAM 1 GM VIAL (RESTRICTED TO ID) ONE ×2 (09:14→22:40)
[2021-11-07] MEDS ORDERED: DEXTROSE 5%-WATER - 50 ML IVPB ONE ×2 (09:14→22:40)
[2021-11-07] MEDS: PANTOPRAZOLE SODIUM 40 MG VIAL IVPUSH SCH (09:49)
[2021-11-07] MEDS: AMINO ACIDS/PROTEIN HYDROLYS 30 ML LIQUID.PKT PO SCH (09:49)
[2021-11-07] MEDS: SODIUM BICARBONATE 650 MG TABLET PO SCH ×2 (09:50→22:07)
[2021-11-07] MEDS: ZINC SULFATE 220 MG CAPSULE (FP) PO SCH (09:50)
[2021-11-07] MEDS: QUEtiapine FUMARATE 25 MG TABLET PO SCH ×2 (09:51→22:07)
[2021-11-07] MEDS: BACITRACIN 15 GM TUBE TOPICAL OINTMENT TP SCH (09:51)
[2021-11-07] MEDS: COLLAGENASE CLOSTRIDIUM HIST. 30 GRAMS TUBE TP SCH (09:51)
[2021-11-07] MEDS: ASCORBIC ACID 250 MG TABLET (FP) PO SCH ×2 (09:51→22:07)
[2021-11-07] MEDS ORDERED: FUROSEMIDE 40 MG/4 ML INJECTABLE VIAL IVPUSH ONE (10:14)
[2021-11-07] MEDS: LORazepam 1 MG TABLET PO PRN (10:25)
[2021-11-07] MEDS: POLYETHYLENE GLYCOL (HEALTHYLAX) 3350 17 GM PACKET PO SCH (10:25)
[2021-11-07] MEDS: MULTIVITAMINS (DAILY MVI) TABLET (FP) PO SCH (10:25)
[2021-11-07] MEDS: AZTREONAM 1 GM in DEXTROSE 5%-WATER - 50 ML IVPB SCH ×2 (10:47→22:58)
[2021-11-07] MEDS: INSULIN (LEVEMIR) 100 UNITS/ML UNITS SQ SCH (21:47)
[2021-11-08] MEDS: BANATROL PLUS POWDER PACKET GT SCH ×3 (06:13→21:21)
[2021-11-08] MEDS: INSULIN SLIDING SCALE (NOVOLOG) 1 VIAL SQ SCH ×4 (06:18→21:45)
[2021-11-08] MEDS: AMINO ACIDS/PROTEIN HYDROLYS 30 ML LIQUID.PKT PO SCH (09:20)
[2021-11-08] MEDS: PANTOPRAZOLE SODIUM 40 MG VIAL IVPUSH SCH (09:20)
[2021-11-08] MEDS: QUEtiapine FUMARATE 25 MG TABLET PO SCH ×2 (09:21→21:29)
[2021-11-08] MEDS: ZINC SULFATE 220 MG CAPSULE (FP) PO SCH (09:21)
[2021-11-08] MEDS: SODIUM BICARBONATE 650 MG TABLET PO SCH ×2 (09:21→21:30)
[2021-11-08] MEDS: COLLAGENASE CLOSTRIDIUM HIST. 30 GRAMS TUBE TP SCH (09:21)
[2021-11-08] MEDS: POLYETHYLENE GLYCOL (HEALTHYLAX) 3350 17 GM PACKET PO SCH (09:21)
[2021-11-08] MEDS: ASCORBIC ACID 250 MG TABLET (FP) PO SCH ×2 (09:21→21:21)
[2021-11-08] MEDS: BACITRACIN 15 GM TUBE TOPICAL OINTMENT TP SCH (09:21)
[2021-11-08] MEDS: MULTIVITAMINS (DAILY MVI) TABLET (FP) PO SCH (09:21)
[2021-11-08] MEDS ORDERED: AZTREONAM 1 GM VIAL (RESTRICTED TO ID) ONE ×2 (10:38→21:49)
[2021-11-08] MEDS ORDERED: DEXTROSE 5%-WATER - 50 ML IVPB ONE ×2 (10:38→21:49)
[2021-11-08] MEDS: AZTREONAM 1 GM in DEXTROSE 5%-WATER - 50 ML IVPB SCH ×2 (10:44→23:04)
[2021-11-08] MEDS: AMINO ACIDS 4.25%/D5W 1,000 ML IV SCH (12:09)
[2021-11-08 14:09] LABS: HEMOGLOBIN 8.2 GM/dL (10.7-15.3); MCH 28.6 pg (25.7-33.7); MCHC 32.8 g/dl (32.0-36.0); MEAN CELL VOLUME 87.3 fl (80-96); MEAN PLT VOLUME 9.1 fl (7.5-11.1); PLATELET COUNT 221 10^3/uL (134-434); RBC 2.86 M/mm3 (3.60-5.2); RDW 17.7 % (11.6-15.6); WHITE BLOOD COUNT 8.6 K/mm3 (4.0-10.0)
[2021-11-08 14:35] LABS: CHLORIDE 108 mmol/L (98-107); SODIUM 136 mmol/L (136-145)
[2021-11-08 14:37] LABS: CALCIUM 8.1 mg/dL (8.5-10.1)
[2021-11-08 14:38] LABS: ANION GAP 16 MMOL/L (8-16); CO2 12 mmol/L (21-32); GLUCOSE,RANDOM 303 mg/dL (74-106)
[2021-11-08 14:40] LABS: CREATININE 2.5 mg/dL (0.55-1.3)
[2021-11-08 14:51] LABS: ANISOCYTOSIS 0; HELMET CELLS 0; HOWELL-JOLLY BODIES 0; MACROCYTOSIS 0; OVALOCYTE 0; ROULEAU 0; SICKELED CELLS 0; TARGET CELLS 0; TEAR DROP CELLS 0; TOXIC GRANULATION 0
[2021-11-08] MEDS: LORazepam 1 MG TABLET PO PRN (21:00)
[2021-11-08] MEDS: INSULIN (LEVEMIR) 100 UNITS/ML UNITS SQ SCH (21:43)
[2021-11-09] MEDS: AMINO ACIDS 4.25%/D5W 1,000 ML IV SCH ×2 (00:44→14:42)
[2021-11-09] MEDS: BANATROL PLUS POWDER PACKET GT SCH ×2 (06:48→14:07)
[2021-11-09] MEDS: INSULIN SLIDING SCALE (NOVOLOG) 1 VIAL SQ SCH ×3 (06:49→16:26)
[2021-11-09] MEDS ORDERED: AZTREONAM 1 GM VIAL (RESTRICTED TO ID) ONE (09:19)
[2021-11-09] MEDS ORDERED: DEXTROSE 5%-WATER - 50 ML IVPB ONE (09:19)
[2021-11-09] MEDS: BACITRACIN 15 GM TUBE TOPICAL OINTMENT TP SCH (10:36)
[2021-11-09] MEDS: AMINO ACIDS/PROTEIN HYDROLYS 30 ML LIQUID.PKT PO SCH (10:36)
[2021-11-09] MEDS: POLYETHYLENE GLYCOL (HEALTHYLAX) 3350 17 GM PACKET PO SCH (10:37)
[2021-11-09] MEDS: QUEtiapine FUMARATE 25 MG TABLET PO SCH (10:37)
[2021-11-09] MEDS: COLLAGENASE CLOSTRIDIUM HIST. 30 GRAMS TUBE TP SCH (10:38)
[2021-11-09] MEDS: PANTOPRAZOLE SODIUM 40 MG VIAL IVPUSH SCH (10:38)
[2021-11-09] MEDS: MULTIVITAMINS (DAILY MVI) TABLET (FP) PO SCH (10:39)
[2021-11-09] MEDS: ZINC SULFATE 220 MG CAPSULE (FP) PO SCH (10:39)
[2021-11-09] MEDS: SODIUM BICARBONATE 650 MG TABLET PO SCH (10:39)
[2021-11-09] MEDS: ASCORBIC ACID 250 MG TABLET (FP) PO SCH (10:41)
[2021-11-09] MEDS: AZTREONAM 1 GM in DEXTROSE 5%-WATER - 50 ML IVPB SCH (11:53)
[2021-11-09 12:40] LABS: HEMATOCRIT 27.3 % (32.4-45.2); HEMOGLOBIN 8.6 GM/dL (10.7-15.3); MCH 27.7 pg (25.7-33.7); MCHC 31.4 g/dl (32.0-36.0); MEAN CELL VOLUME 88.4 fl (80-96); MEAN PLT VOLUME 9.4 fl (7.5-11.1); PLATELET COUNT 293 10^3/uL (134-434); RBC 3.09 M/mm3 (3.60-5.2); RDW 17.7 % (11.6-15.6); WHITE BLOOD COUNT 12.3 K/mm3 (4.0-10.0)
[2021-11-09 12:44] LABS: CHLORIDE 101 mmol/L (98-107); SODIUM 130 mmol/L (136-145)
[2021-11-09 12:45] LABS: ANION GAP 19 MMOL/L (8-16); CALCIUM 8.3 mg/dL (8.5-10.1); CO2 10 mmol/L (21-32)
[2021-11-09 12:46] LABS: GLUCOSE,RANDOM 329 mg/dL (74-106)
[2021-11-09 13:05] LABS: BLOOD UREA NITROGEN 149.1 mg/dL (7-18)
[2021-11-09] MEDS ORDERED: MORPHINE SULFATE/0.9% NACL/PF 100 MG/100 ML BAG IVPB SCH (13:30)
[2021-11-09 14:08] VITALS: BP 66/29; PULSE 111; TEMP 97.9
[2021-11-09 14:46] LABS: PLATELET ESTIMATE NORMAL
== END 2021-11-09 20:05 | disposition expired | DRG 871 ==
LOC: JER 18:26 → JERBED 21:57 → JICU 10-14 02:28 → J5S 10-15 17:36 → J7W 10-16 12:03
PROVIDERS: ADMIT Internal Medicine Pulmonary Disease; ATTEND Internal Medicine
PROC: 05HF33Z Insertion of Infusion Device into Left Cephalic Vein, Percutaneous Approach (ICD-10-PCS; 2021-10-28)
PROC: 0DH64UZ Insertion of Feeding Device into Stomach, Percutaneous Endoscopic Approach (ICD-10-PCS; principal; 2021-10-30)
DX: A41.50 Gram-negative sepsis, unspecified (principal); G92.8 Other toxic encephalopathy; R65.21 Severe sepsis with septic shock; J69.0 Pneumonitis due to inhalation of food and vomit; N17.9 Acute kidney failure, unspecified; E87.2 Acidosis; I50.22 Chronic systolic (congestive) heart failure; N39.0 Urinary tract infection, site not specified; E87.0 Hyperosmolality and hypernatremia; I13.0 Hypertensive heart and chronic kidney disease with heart failure and stage 1 through stage 4 chronic kidney disease, or unspecified chronic kidney disease; I69.354 Hemiplegia and hemiparesis following cerebral infarction affecting left non-dominant side; E46 Unspecified protein-calorie malnutrition; F05 Delirium due to known physiological condition; B37.49 Other urogenital candidiasis; E87.1 Hypo-osmolality and hyponatremia; L97.429 Non-pressure chronic ulcer of left heel and midfoot with unspecified severity; F03.90 Unspecified dementia, unspecified severity, without behavioral disturbance, psychotic disturbance, mood disturbance, and anxiety; E11.22 Type 2 diabetes mellitus with diabetic chronic kidney disease; I25.10 Atherosclerotic heart disease of native coronary artery without angina pectoris; N18.9 Chronic kidney disease, unspecified; I25.5 Ischemic cardiomyopathy; R62.7 Adult failure to thrive; Z68.20 Body mass index [BMI] 20.0-20.9, adult; E11.649 Type 2 diabetes mellitus with hypoglycemia without coma; E11.65 Type 2 diabetes mellitus with hyperglycemia; E86.0 Dehydration; E87.6 Hypokalemia; D72.829 Elevated white blood cell count, unspecified; Z98.61 Coronary angioplasty status
CPT/HCPCS: 36415; 36430; 36600; 49440; 70450-TC; 71045-TC-FY; 74018-TC-FY; 80048; 80053; 80061; 81003; 82010; 82436; 82553; 82570; 82607; 82803; 82962; 83036; 83605; 83735; 84100; 84133; 84300; 84436; 84443; 84479; 85025; 85610; 85730; 86850; 86870; 86900; 86901; 86902; 86922; 87040; 87077; 87086; 87186; 93005; 93010; 99285-25; C9803-CS; J1644; P9058; U0003; U0005